=== PATIENT | female | born 1945 | race Caucasian/White ===

== ENCOUNTER → 2016-10-24 | Outpatient (CLI) | payer OTHER | LOC: BMCIMAGING 17:42 | PROVIDERS: ATTEND Internal Medicine | DX: M25.532 Pain in left wrist (principal); M25.432 Effusion, left wrist ==

== ENCOUNTER → 2016-11-05 | Outpatient (CLI) | payer OTHER | LOC: CIMAGING 13:56 | PROVIDERS: ATTEND Otolaryngology | DX: M79.89 Other specified soft tissue disorders (principal) | CPT/HCPCS: 70486-PO ==

== ENCOUNTER → 2017-03-17 | Outpatient (CLI) | payer OTHER | LOC: FIMAGING 10:14 | PROVIDERS: ATTEND Neurological Surgery | DX: M48.061 Spinal stenosis, lumbar region without neurogenic claudication (principal) ==

== ENCOUNTER 2017-07-19 10:41 | Day surgery (SDC) | payer OTHER ==
--- NOTE | 2017-07-19 11:05 | PDANEPAE ---
ANE Past Medical History - Cardiovascular History Hx Hypertension: Yes Hx Arrhythmias: Yes Hx Chest Pain: No Hx Coronary Artery / Peripheral Vascular Disease: No Hx CHF / Valvular Disease: No Hx Palpitations: No Cardiovascular History Comment: CARDIOVERSION X2 FOR A-FIB LAST 2015 - Pulmonary History Hx COPD: No Hx Asthma/Reactive Airway Disease: No Hx Recent Upper Respiratory Infection: No Hx Oxygen in Use at Home: Yes O2 in Use at Home (L/minute): 4.5 Hx Sleep Apnea: Yes Sleep Apnea Screening Result - Last Documented: Positive Pulmonary History Comment: INSTRUCTED TO BRING PORTABLE OXYGEN - Neurologic History Hx Cerebrovascular Accident: No Hx Seizures: No Hx Dementia: No - Endocrine History Hx Diabetes: Yes Hypothyroid: Yes Hyperthyroid: No Obesity: yes, mild Endocrine History Comment: CARL - Renal History Hx Renal Disorders: Yes Renal History Comment: UA INCONT - Liver History Hx Hepatic Disorders: No - Neurological & Psychiatric Hx Hx Neurological and Psychiatric Disorders: Yes Neurological / Psychiatric History Comment: CLOSED HEAD INJURY 09/2016 RESIDUAL ISSUES WITH SLEEP. ANXIETY AND DEPRESSION - Cancer History Hx Cancer: Yes Cancer History Comment: VULVA. ENDOMETRIAL - Congenital Disorder History Hx Congenital Disorders: No - GI History GERD: no Hx Gastrointestinal Disorders: Yes Gastrointestinal History Comment: PREV KIERA FUNDOPLICATION. PREV COLONOSCOPY WTIH POLYPS REMVL - Other Health History Other Health History: DDD. RESTLESS LEG SYNDROME. DRY EYES - Chronic Pain History Chronic Pain: Yes (LOWER BACK,LT LEG) - Surgical History Prior Surgeries: LESLIE TOTAL HIP. HYSTERECTOMY. RT RTC REPAIR. KIERA FUNDOPLICATION. TONSILLECTOMY ANE Review of Systems Review of Systems: - Exercise capacity METS (RN): 2 METS ANE Patient History - Allergies Allergies/Adverse Reactions: codeine [Codeine] Allergy (Verified 08/01/12 16:06) Vomiting - Home Medications Home Medications: SUMAtriptan [Imitrex Nasal [place]] 20 mg NASAL ONCE PRN 08/22/12 [Last Taken 07/21] Levothyroxine [Synthroid 112 mcg (*)] 112 mcg PO DAILY06 01/06/15 [Last Taken ] Vortioxetine Hydrobromide [Trintellix] 20 mg PO DAILY06 01/06/15 [Last Taken ] Diltiazem HCl [Diltiazem 24Hr Cd] 300 mg PO DAILY06 09/29/15 [Last Taken ] fentaNYL [Duragesic 50 MCG Patch (*)] 50 mcg TD Q48H 09/29/15 [Last Taken ] rOPINIRole HCL [Requip 1mg (*)] 1 mg PO HS 09/29/15 [Last Taken 07/17/17] Cyclobenzaprine 10 mg PO HS 01/12/16 [Last Taken 07/17/17] Vitamin D3 5,000 mg PO DAILY 01/12/16 [Last Taken 07/12/17] Mucinex BID 07/18/17 [Last Taken 07/18/17] Oxymorphone HCl PRN 07/18/17 [Last Taken 07/12/17] Temazepam HS 07/18/17 [Last Taken 07/18/17] - Anes Hx Anes Hx: no prior problems - Smoking Hx Smoking Status: Never smoked - Alcohol Use Alcohol Use: Rarely - Family Anes Hx Family Anes Hx: neg - N/A ANE Labs/Vital Signs - Vital Signs Height: 173.99 cm Weight: 99.79 kg ANE Physical Exam - Airway Neck exam: FROM Mallampati Score: Class 2 Mouth exam: normal dental/mouth exam - Pulmonary Pulmonary: no respiratory distress, no rales or rhonchi, clear to auscultation - Cardiovascular Cardiovascular: irregularly irregular - ASA Status ASA Status: III ANE Anesthesia Plan Anesthesia Plan: MAC Total IV Anesthesia: Yes
[2017-07-19 11:30] VITALS: PULSE 75
[2017-07-19] MEDS ORDERED: PROPOFOL/EMULSION 500 MG/50 ML BOTTLE IV ONE (11:52)
[2017-07-19] MEDS ORDERED: LIDOCAINE 2% 5 ML SDV ONE (11:52)
--- NOTE | 2017-07-19 11:53 | PDGENHP ---
History & Physical Chief Complaint: h/o colon polyps History of Present Illness: Due fro surviellance colon exam Pertinent Past, Social, Family History: fam h/o colon cancer in mother Relevant Physical Exam: cv rrr s1s2 n. chest cta. abd + bs soft Cardiorespiratory Assessment: asa iii
[2017-07-19] MEDS ORDERED: ACETAMINOPHEN 500 MG TAB PO PRN (11:58)
[2017-07-19] MEDS ORDERED: LR 500 ML IV PRN (11:58)
[2017-07-19] MEDS ORDERED: ONDANSETRON 4 MG/2 ML VIAL IVP PRN (11:58)
[2017-07-19] MEDS ORDERED: HYDROCODONE/APAP 5/325 TAB PO PRN (11:58)
[2017-07-19] MEDS ORDERED: PROMETHAZINE HCL 25 MG/ML INJ IVP PRN (11:58)
[2017-07-19] MEDS ORDERED: OXYCODONE/APAP 5/325 TAB PO PRN (11:58)
[2017-07-19] MEDS ORDERED: NALOXONE HCL 0.4 MG/ML INJ IVP PRN (11:58)
[2017-07-19] MEDS ORDERED: fentaNYL 100 MCG/2 ML INJ IVP PRN (11:58)
[2017-07-19] MEDS ORDERED: PHENYLEPHRINE HCL 100 MCG/ML SYR ONE (12:06)
--- NOTE | 2017-07-19 12:24 | GIREPORT ---
Formerly [facility] Surgical Services - Endoscopy Department Patient Name: Marianna Trinh Procedure Date: 07/19/2017 12:00 PM Patient Type: Outpatient Attending MD/ ER Physician: Arlene Abbasi MD Procedure: Colonoscopy Indications: High risk colon cancer surveillance: Personal history of colonic polyps , Family history of colon cancer in a first-degree relative Providers: Arlene Abbasi MD Medicines: Monitored Anesthesia Care Complications: No immediate complications. Description of Procedure: After obtaining informed consent, the scope was passed under direct vis ion. Throughout the procedure, the patient's blood pressure, pulse, and oxyg en saturations were monitored continuously. The Colonoscope with irrigatio n channel was introduced through the anus and advanced to the cecum, identified by appendiceal orifice and ileocecal valve. The colonoscopy was performed without difficulty. The patient tolerated the procedure well. The quality of the bowel preparation was good. The ileocecal valve, appendi ceal orifice, and rectum were photographed. Findings: The perianal and digital rectal examinations were normal. A few diverticula were found in the sigmoid colon. The mucosa vascular pattern in the rectum was locally increased. Estimated Blood Loss: Estimated blood loss: none. Post Op Diagnosis: - Diverticulosis in the sigmoid colon. - Increased mucosa vascular pattern in the rectum possibel AVMs vs prep effect. - No specimens collected. Recommendation: - Patient has a contact number available for emergencies. The signs and symptoms of potential delayed complications were discussed with the pat ient. Return to normal activities tomorrow. Written discharge instructions we re provided to the patient. - Resume previous diet. - Continue present medications. - Resume Eliquis (apixaban) at prior dose today. Refer to managing phys ician for further adjustment of therapy. - Repeat colonoscopy in 5 years for surveillance. - Discharge patient to home. - Thank you for allowing me to participate in the care of your patient. Arlene Abbasi MD Arlene Abbasi MD 07/19/2017 12:23:53 PM This report has been signed electronicallyArlene Abbasi MD Number of Addenda: 0 Note Initiated On: 07/19/2017 12:00 PM Total Procedure Duration Time 0 hours 15 minutes 34 seconds [email or web address]
--- NOTE | 2017-07-19 12:38 | POSTANESTH ---
Post Anesthetic Evaluation Cardiovascular Status: Normal, Stable Respiratory Status: Normal, Stable Level of Consciousness/Mental Status: Can Participate in Eval Pain Control: Adequate, Prn Tx Ordered Nausea/Vomiting Control: Adequate, Prn Tx Ordered Complications Possibly Related to Anesthesia: None Noted
[2017-07-19 13:34] VITALS: TEMP 97.7
[2017-07-19 13:41] VITALS: BP 134/66; RESP 16; O2SAT 90
== END 2017-07-19 13:38 | disposition home or self-care (01) ==
LOC: FSGY 10:41
PROVIDERS: ATTEND Internal Medicine Gastroenterology
PROC: 0DJD8ZZ Inspection of Lower Intestinal Tract, Via Natural or Artificial Opening Endoscopic (ICD-10-PCS; principal; 2017-07-19 12:00)
DX: Z12.11 Encounter for screening for malignant neoplasm of colon (principal); Z86.010 Personal history of colon polyps; Z80.0 Family history of malignant neoplasm of digestive organs; K57.30 Diverticulosis of large intestine without perforation or abscess without bleeding; I48.91 Unspecified atrial fibrillation; Z87.820 Personal history of traumatic brain injury; Z96.643 Presence of artificial hip joint, bilateral
CPT/HCPCS: J2370; J2704

== ENCOUNTER 2017-08-14 10:48 | Inpatient (IN) | payer OTHER ==
[2017-08-14] MEDS ORDERED: HYDROmorphONE/DILAUDID 2 MG/ML INJ IVP ONE (12:40)
--- NOTE | 2017-08-14 12:40 | EDPHY ---
H & P Stated Complaint: Tripped and fell last night; has L rib/R wrist pain. No other injuries - Personal History Current Tetanus Diphtheria and Acellular Pertussis (TDAP): Yes Tetanus Vaccine Date: WITHIN 10 YRS - Medical/Surgical History Hx Asthma: No Hx Chronic Respiratory Disease: No Hx Diabetes: Yes Hx Cardiac Disease: Yes Hx Renal Disease: No Hx Cirrhosis: No Hx Alcoholism: No Hx HIV/AIDS: No Hx Splenectomy or Spleen Trauma: No Other PMH: home O2 at night; endometrial CA; hysterectomy; Bilateral hip replacements, sleep apnea, chronic back pain, DDD, thyroid disease, Romeo, GERD, Right rotator cuff repair, Afib. Urosepsis, recent radiation. chronic pain - Social History Smoking Status: Never smoked Time Seen by Provider: 08/14/17 11:00 HPI/ROS: Chief complaint: Fall with injuries History of present illness: This is a 72-year-old female, with multiple medical problems, currently on Eliquis, who presents to the emergency department for evaluation of fall with associated injuries. She fell last night. She injured the left side of her chest in her right wrist. Since then she has had pain. She does live independently and is made it very difficult to care for herself. She is relied on her home caregivers for extra support. She denies associated signs or symptoms including no report trauma to other parts of the body including no trauma to or pain in the head, neck, back, abdomen or other extremities. No report of paresthesias, weakness or paralysis or bowel or bladder dysfunction. No report of open wounds. Review of systems: A 10 point review of systems was obtained and other than described above was negative (Matt Chambers) - Physical Exam Exam: General Appearance: Alert, uncomfortable but nontoxic appearing Eyes: PERRLA ENT: No hemotympanum, no cifuentes sign, no raccoon eyes Respiratory: Lungs clear to auscultation bilaterally Cardiac: Regular rate and rhythm. Gastrointestinal: Bowel sounds normal. Abdomen is soft, nondistended, nontender. Neurological: Alert and oriented x4. Cranial nerves 2-12 grossly intact. Strength and sensation intact and symmetrical. Skin: No lesions with acute trauma noted. Musculoskeletal: The head is nontender. The spine is nontender, there is no crepitus, bony deformity or step-off. Tenderness to the left superior chest wall without subcutaneous air. Pelvis stable to rocking motion. Tenderness of the right wrist and hurts to move it. The rest of the right upper extremity and other extremities are unremarkable. (Matt Chambers) Constitutional: Initial Vital Signs Temperature (C) 36.4 C 08/14/17 10:48 Heart Rate 102 H 08/14/17 10:48 Respiratory Rate 16 08/14/17 10:48 Blood Pressure 164/103 H 08/14/17 10:48 O2 Sat (%) 91 L 08/14/17 10:48 O2 Delivery Mode Room Air O2 (L/minute) 2 Allergies/Adverse Reactions: codeine [Codeine] Allergy (Mild, Verified 08/14/17 10:59) Vomiting Home Medications: Medication Instructions Recorded Apixaban [Eliquis] 5 mg PO BID #60 tab 01/07/15 Oxymorphone HCl 5 mg PO BID PRN 07/18/17 Calcium Carbonate [Oyster Shell 500 mg PO DAILY 08/14/17 Calcium 500 mg (*)] Cholecalciferol Vit D3 [Vitamin D3 1,000 units PO DAILY 08/14/17 (*)] Cyclobenzaprine [Flexeril 10 MG 10 mg PO HS PRN 08/14/17 (*)] Diltiazem HCl [Cartia XT 240mg] 240 mg PO DAILY@1200 08/14/17 Levothyroxine [Synthroid 125 mcg 125 mcg PO DAILY06 08/14/17 (*)] Modafinil [Provigil 100 mg (*)] 100 mg PO DAILY PRN 08/14/17 Temazepam [Restoril 15 MG (*)] 15 mg PO HSPRN PRN 08/14/17 Travoprost Z 0.004% [Travatan Z 1 drops EACHEYE BID 08/14/17 0.004% (*)] Vortioxetine Hydrobromide 20 mg PO DAILY@1200 08/14/17 [Trintellix] cycloSPORINE 0.05% [Restasis Opht 1 drop EACHEYE BID 08/14/17 Drops(*)] fentaNYL [Duragesic 75 MCG Patch 75 mcg TD Q48H 08/14/17 (*)] rOPINIRole HCL [Requip 2mg (*)] 2 mg PO HS 08/14/17 Apixaban [Eliquis] 5 mg PO BID tab 08/17/17 Diltiazem Xr [Dilacor Xr] 240 mg PO DAILY cap 08/17/17 Hydrocodone/APAP 5/325 [[place] 1 - 2 tab PO Q6HRS PRN #30 tab 08/17/17 5/325 (*)] Ibuprofen [Motrin (*)] 600 mg PO Q8HRS 10 Days #30 tab 08/17/17 Medical Decision Making - Diagnostics Imaging: I viewed and interpreted images myself Procedures: Procedure: Splint placement. A sugar-tong splint was applied. After application of the splint I returned and re-examined the patient. The splint was adequately immobilizing the joint and distal to the splint the patient's circulation and sensation was intact. ( Matt Chambers) ED Course/Re-evaluation: Patient is discussed with my secondary supervising physician Dr. Yee Best. Patient presents to the emergency department after sustaining a fall last night injuring the left side of her chest and her right wrist. By history and physical exam no evidence of trauma to other parts of the body. Imaging studies revealed 3 left-sided rib fractures and a right wrist fracture. Ultimately I do not believe patient is safe for discharge home. Multiple injuries are making it difficult for her to perform ADLs. Further she is on Eliquis. Further pain management has been difficult as she is on chronic pain medications. She is oxygen dependent at night and adding more pain management could worsen this. She will ultimately be admitted to Trauma Services, Dr. Donte Gordon. I have consulted with Orthopedics, physician high school assistant principal Emma Contreras , the orthopedic team will consult on this patient for her wrist fracture. The plan has been discussed with the patient who voiced understanding and agreement with it. (Matt Chambers) Differential Diagnosis: Included but not limited to multi trauma including soft tissue injury, bony fracture (Matt Chambers) Other Provider: I evaluated and participated in the management of the patient. I also evaluated the patient independently. My co-signature indicates that I have reviewed this chart and I agree with the findings and plan of care as documented. My personal H&P findings include: 72-year-old female who lives independently, currently on Eliquis, had a fall at home. Patient is complaining of left-sided chest pain as well as pain in her right wrist. No reports of head trauma or loss of consciousness. Vital signs are stable. The breath sounds are equal bilaterally. Tenderness to palpation along the chest wall laterally the left. Tenderness and deformity of the right wrist. Evaluation demonstrates rib fractures as well as a right wrist fracture. Patient will be admitted to the hospital for further management of her traumatic complaints as well as pain management as she currently lives independently. (Yee Best) - Data Points Laboratory Results: Laboratory Results 08/15/17 09:20 08/16/17 04:17 Medications Given: Discontinued Medications Acetaminophen (Tylenol) 1,000 mg PO EDNOW ONE Stop: 08/14/17 12:42 Last Admin: 08/14/17 13:30 Dose: 1,000 mg Hydrocodone Bitart/Acetaminophen ([place] 5/325) 1 - 2 tab PO Q6HRS PRN PRN Reason: Pain, Moderate Able to Take PO Stop: 08/24/17 13:11 Last Admin: 08/17/17 07:50 Dose: 1 tab Apixaban (Eliquis) 5 mg PO BID [facility] Stop: 02/12/18 08:59 Last Admin: 08/17/17 07:46 Dose: 5 mg Cyclobenzaprine HCl (Flexeril) 10 mg PO HS PRN PRN Reason: Spasms Stop: 02/10/18 16:27 Last Admin: 08/16/17 22:01 Dose: 10 mg Cyclosporine (Restasis) 1 drop EACHEYE BID MARIO Stop: 02/10/18 20:59 Last Admin: 08/17/17 11:32 Dose: 1 drop Diazepam (Valium) 5 - 10 mg PO Q6HRS PRN PRN Reason: Anxiety Stop: 02/10/18 13:11 Last Admin: 08/15/17 23:05 Dose: 5 mg Diltiazem HCl (Dilacor Xr) 240 mg PO DAILY [facility] Stop: 02/10/18 16:29 Last Admin: 08/17/17 07:46 Dose: 240 mg Docusate Sodium (Colace) 100 mg PO BID [facility] Stop: 02/11/18 10:44 Last Admin: 08/17/17 07:47 Dose: 100 mg Fentanyl (Duragesic) 75 mcg TD Q48H MARIO Stop: 08/24/17 16:29 Last Admin: 08/14/17 16:48 Dose: Not Given Fentanyl (Duragesic) 75 mcg TD Q48H [facility] Stop: 08/26/17 09:44 Last Admin: 08/16/17 10:07 Dose: 75 mcg Hydromorphone HCl (Dilaudid) 0.5 mg IVP EDNOW ONE Stop: 08/14/17 12:41 Last Admin: 08/14/17 13:30 Dose: 0.5 mg Dextrose/Sodium Chloride (D5w 1/2 Ns) 1,000 mls @ 125 mls/hr IV CONT MARIO Stop: 02/10/18 13:14 Last Admin: 08/15/17 10:01 Dose: 1,000 mls Ibuprofen (Motrin) 600 mg PO Q8HRS MARIO Stop: 02/10/18 13:59 Last Admin: 08/17/17 05:28 Dose: 600 mg Levothyroxine Sodium (Synthroid) 125 mcg PO DAILY06 MARIO Stop: 02/11/18 05:59 Last Admin: 08/17/17 05:29 Dose: 125 mcg Miscellaneous Information (Patch Removal) 1 ea TD DAILY21 MARIO Stop: 02/10/18 20:59 Last Admin: 08/15/17 03:00 Dose: 1 ea Miscellaneous Medication (Icy Hot Lidocaine/Menthol 4%/1% Patch) 1 patch TD EDNOW ONE Stop: 08/14/17 12:42 Last Admin: 08/14/17 13:31 Dose: 1 patch Oxycodone HCl (Oxycodone Ir) 5 mg PO Q4 PRN PRN Reason: Pain, Severe Stop: 08/25/17 10:39 Last Admin: 08/17/17 12:50 Dose: 5 mg Potassium Chloride (Klor-Con) 10 - 40 meq PO ONCE ONE PRN Reason: Protocol Stop: 08/15/17 13:06 Last Admin: 08/15/17 13:23 Dose: 30 meq Ropinirole HCl (Requip) 2 mg PO HS MARIO Stop: 02/10/18 20:59 Last Admin: 08/16/17 21:49 Dose: 2 mg Senna/Docusate Sodium (Senokot-S) 1 - 2 tab PO BID MARIO PRN Reason: Protocol Stop: 02/12/18 12:29 Last Admin: 08/17/17 07:46 Dose: 2 tab Temazepam (Restoril) 15 mg PO HS PRN PRN Reason: Sleep/Insomnia Stop: 02/10/18 16:27 Last Admin: 08/17/17 00:46 Dose: 15 mg Travoprost (Travatan Z 0.004%) 1 drops EACHEYE BID MARIO Stop: 02/10/18 20:59 Last Admin: 08/17/17 11:40 Dose: Not Given Departure - Departure Disposition: [facility] Inpatient Acute Clinical Impression: Ribs, multiple fractures Qualifiers: Encounter type: initial encounter Fracture type: closed Laterality: left Qualified Code(s): S22.42XA - Multiple fractures of ribs, left side, initial encounter for closed fracture Wrist fracture, right Qualifiers: Encounter type: initial encounter Fracture type: closed Qualified Code(s): S62.101A - Fracture of unspecified carpal bone, right wrist, initial encounter for closed fracture Condition: Fair
[2017-08-14] MEDS ORDERED: LIDOCAINE 4%/MENTHOL 1% PATCH TD ONE (12:41)
[2017-08-14] MEDS ORDERED: ACETAMINOPHEN 500 MG TAB PO ONE (12:41)
[2017-08-14 13:01] LABS: PLATELET COUNT 298 10^3/uL (150-400)
[2017-08-14] MEDS ORDERED: ONDANSETRON DISINTEGRATING 4 MG TAB PO PRN (13:12)
[2017-08-14] MEDS ORDERED: ONDANSETRON 4 MG/2 ML VIAL IVP PRN (13:12)
[2017-08-14] MEDS ORDERED: DIAZEPAM 5 MG TAB PO PRN (13:12)
--- NOTE | 2017-08-14 13:17 | PDGENHP ---
History and Physical - Chief Complaint chest pain - History of Present Illness Marianna is a 72 y/o female who lost her footing a fell to the ground around midnight last night. She denies feeling light headed and denies LOC, head injury , prior syncope. She called her sister, who lives nearby, and her sister helped her to bed. This morning she had worsening left sided chest pain and swelling in her right wrist and she decided it was time to come in. She is complaining of left chest pain and right wrist pain. She has chronic low back pain for which she uses a fentanyl patch + oxymorphone. She denies headache, visual disturbances, nausea, vomiting, change in her bowel movements History Information - Allergies/Home Medication List Allergies/Adverse Reactions: codeine [Codeine] Allergy (Mild, Verified 08/14/17 10:59) Vomiting Home Medications: Oxymorphone HCl 5 mg PO BID PRN 07/18/17 [Last Taken 08/14/17 03:00] Calcium Carbonate [Oyster Shell Calcium 500 mg (*)] 500 mg PO DAILY 08/14/17 [ Last Taken Unknown] Cholecalciferol Vit D3 [Vitamin D3 (*)] 1,000 units PO DAILY 08/14/17 [Last Taken Unknown] Cyclobenzaprine [Flexeril 10 MG (*)] 10 mg PO HS PRN 08/14/17 [Last Taken ] Diltiazem HCl [Cartia XT 240mg] 240 mg PO DAILY@1200 08/14/17 [Last Taken ] Levothyroxine [Synthroid 125 mcg (*)] 125 mcg PO DAILY06 08/14/17 [Last Taken ] Modafinil [Provigil 100 mg (*)] 100 mg PO DAILY PRN 08/14/17 [Last Taken Unknown ] Temazepam [Restoril 15 MG (*)] 15 mg PO HSPRN PRN 08/14/17 [Last Taken 08/13/17] Travoprost Z 0.004% [Travatan Z 0.004% (*)] 1 drops EACHEYE BID 08/14/17 [Last Taken Unknown] Vortioxetine Hydrobromide [Brintellix] 20 mg PO DAILY@1200 08/14/17 [Last Taken 08/13/17] cycloSPORINE 0.05% [Restasis Opht Drops(*)] 1 drop EACHEYE BID 08/14/17 [Last Taken Unknown] fentaNYL [Duragesic 75 MCG Patch (*)] 75 mcg TD Q48H 08/14/17 [Last Taken ] rOPINIRole HCL [Requip 2mg (*)] 2 mg PO HS 08/14/17 [Last Taken 08/13/17] I have personally reviewed and updated: family history, medical history, social history (lives alone in [facility]), surgical history - Past Medical History atrial fibrillation (sees Dr. Prado), GERD, recent fracture - Surgical History Additional surgical history: bilateral SAM/lap Pinky - Social History Smoking Status: Never smoked Alcohol Use: None Drug Use: None Review of Systems Review of Systems: Constitutional: Reports: recent injury EENMT: Reports: no symptoms Cardiac: Reports: irregular heart rate Respiratory: Reports: shortness of breath Gastrointestinal: Reports: no symptoms Genitourinary: Reports: no symptoms Muscolosketal: Reports: joint pain (right wrist) Skin: Reports: no symptoms Neurological: Reports: no symptoms Hematologic/Lymphatic: Reports: no symptoms Physical Exam Physical Exam: Temp Pulse Resp BP Pulse Ox 36.4 C 96 18 142/101 H 93 08/14/17 10:48 08/14/17 12:00 08/14/17 12:00 08/14/17 12:00 08/14/17 12:00 Eyes: PERRL, anicteric sclera, EOMI Ears, Nose, Mouth, Throat: other (neck supple/non-tender) Cardiovascular: irregularly irregular, tachycardia Peripheral Pulses: 2+: dorsalis-pedis (R), dorsalis-pedis (L) Respiratory: clear to auscultation, reduced air movement Gastrointestinal: normoactive bowel sounds, soft, non-tender abdomen Skin: warm, normal color Musculoskeletal: other (right forearm sugar-tong splint/distal NV intact) Neurologic: AAOx3, sensation intact bilaterally Psychiatric: interacting appropriately, anxious Lab Data & Imaging Review 08/14/17 12:50 08/14/17 12:50 WBC 17.25 10^3/uL (3.80-9.50) H 08/14/17 12:50 RBC 5.51 10^6/uL (4.18-5.33) H 08/14/17 12:50 Hgb 17.4 g/dL (12.6-16.3) H 08/14/17 12:50 Hct 50.9 % (38.0-47.0) H 08/14/17 12:50 MCV 92.4 fL (81.5-99.8) 08/14/17 12:50 MCH 31.6 pg (27.9-34.1) 08/14/17 12:50 MCHC 34.2 g/dL (32.4-36.7) 08/14/17 12:50 RDW 13.9 % (11.5-15.2) 08/14/17 12:50 Plt Count 298 10^3/uL (150-400) 08/14/17 12:50 MPV 8.5 fL (8.7-11.7) L 08/14/17 12:50 Neut % (Auto) 88.2 % (39.3-74.2) H 08/14/17 12:50 Lymph % (Auto) 4.4 % (15.0-45.0) L 08/14/17 12:50 [place] % (Auto) 6.3 % (4.5-13.0) 08/14/17 12:50 Eos % (Auto) 0.3 % (0.6-7.6) L 08/14/17 12:50 Baso % (Auto) 0.5 % (0.3-1.7) 08/14/17 12:50 Nucleat RBC Rel Count 0.0 % (0.0-0.2) 08/14/17 12:50 Absolute Neuts (auto) 15.22 10^3/uL (1.70-6.50) H 08/14/17 12:50 Absolute Lymphs (auto) 0.76 10^3/uL (1.00-3.00) L 08/14/17 12:50 Absolute Monos (auto) 1.08 10^3/uL (0.30-0.80) H 08/14/17 12:50 Absolute Eos (auto) 0.05 10^3/uL (0.03-0.40) 08/14/17 12:50 Absolute Basos (auto) 0.08 10^3/uL (0.02-0.10) 08/14/17 12:50 Absolute Nucleated RBC 0.00 10^3/uL (0-0.01) 08/14/17 12:50 Immature Gran % 0.3 % (0.0-1.1) 08/14/17 12:50 Immature Gran # 0.06 10^3/uL (0.00-0.10) 08/14/17 12:50 PT REJ 08/14/17 12:50 Sodium 142 mEq/L (135-145) 08/14/17 12:50 Potassium 4.7 mEq/L (3.5-5.2) 08/14/17 12:50 Chloride 102 mEq/L (97-110) 08/14/17 12:50 Carbon Dioxide 25 mEq/l (22-31) 08/14/17 12:50 Anion Gap 15 mEq/L (8-16) 08/14/17 12:50 BUN 13 mg/dL (7-23) 08/14/17 12:50 Creatinine 0.6 mg/dL (0.6-1.0) 08/14/17 12:50 Estimated GFR > 60 08/14/17 12:50 Glucose 100 mg/dL (70-100) 08/14/17 12:50 Calcium 9.3 mg/dL (8.5-10.4) 08/14/17 12:50 Visualized and Interpreted Chest x-ray results: Yes Chest X-Ray results: other (left lateral minimally displaced fractures ribs 4-6/ no effusion/normal mediastinum) Visualized and Interpreted imaging results: Yes Interpretation: comminuted right distal radius fracture, intra-articular extension. no carpal bone fracture Assessment & Plan Assessment: s/p fall at home, 14 hours prior to presentation left 4-6th rib fractures, non-displaced right distal radius fracture/intra-articular extensio A-fib tachycardia obesity HTN chronic pain on chronic opiate therapy Plan: Plan: Admit ICU/Trauma Service for observation Hold Eliquis for now Ortho consult: Dr. Quijano's aware/splint right wrist for now resume Diltiazem Hospitalist consult: Dr. Raymundo has agreed to see her Tertiary survey in AM
[2017-08-14 14:25] LABS: INR 1.14 (0.83-1.16); PROTIME(PATIENT) 14.8 SEC (12.0-15.0)
[2017-08-14] MEDS: IBUPROFEN 600 MG TAB PO SCH ×2 (16:07→21:18)
[2017-08-14] MEDS ORDERED: MODAFINIL 100 MG TAB PO PRN (16:28)
[2017-08-14] MEDS ORDERED: fentaNYL 75 MCG PATCH TD SCH (16:30)
[2017-08-14] MEDS: DILTIAZEM XR 240 MG CAP PO SCH (16:52)
--- NOTE | 2017-08-14 17:49 | SOAPPROG ---
SOAP Progress Note Assessment/Plan: Assessment: HPI: 72 y/o female s/p a fall onto her outstretched RUE and left chest earlier today (08/14/17). She presented to the [facility] ED and was found to have a right distal radius fracture and several left-sided rib fractures. PE: Gen: NAD AVSS RUE: Sugar tong splint CDI +EDC, EPL, FPL, FDS, FDP, FDP-I, DI, PI +M/R/U SILT < 2 second capillary refill Right wrist radiographs: right distal radius fracture (complete, minimally displaced) Assessment and Plan: 72 year old female s/p a right distal radius fracture (complete, minimally displaced) and several left-sided rib fracture after a fall earlier today () -Continue in current sugar tong splint -Strict NWB on LUE -FU as an outpatient next week for repeat left wrist radiographs remaining in current splint -Encourage finger and thumb ROM -Full consult to follow 08/14/17 17:45 08/14/17 17:49 Objective: Vital Signs Temp Pulse Resp BP Pulse Ox 36.6 C 110 H 17 145/71 H 95 08/14/17 16:00 08/14/17 16:00 08/14/17 16:00 08/14/17 16:00 08/14/17 16:00 Laboratory Results 08/14/17 12:50 08/14/17 12:50 08/13/17 08/14/17 08/15/17 05:59 05:59 05:59 Intake Total 20 Balance 20 PT 14.8 SEC (12.0-15.0) 08/14/17 14:09 INR 1.14 (0.83-1.16) 08/14/17 14:09 ICD10 Worksheet Patient Problems: Problems Problem Status Onset Ribs, multiple fractures Acute Wrist fracture, right Acute Afib Acute Altered mental status Acute Diarrhea Acute Failure to thrive Acute Fever Acute Severe sepsis Acute UTI (urinary tract infection) Acute Osteoarthritis of hip Chronic
[2017-08-14 18:38] LABS: PLATELET COUNT 291 10^3/uL (150-400)
--- NOTE | 2017-08-14 18:47 | GCON ---
[f rep st] CONSULTATION DATE OF CONSULTATION: 08/14/2017 REASON FOR CONSULTATION: I was asked by Dr. Gordon to see Ms. Trinh in regard to her medical problem s including AFib with RVR. HISTORY OF PRESENT ILLNESS: This 72-year-old female who suffered a fall about noon today. She was f eeding her cat when she tripped in the kitchen, fell backwards, hit her back against the cabinets, br cat her fall with her right wrist. She had immediate pain in the left ribs. She has some pain there , but is denying any other chest pain. She does not have any lightheadedness, or shortness of breath either. She has a history of atrial fibrillation. She did not take her diltiazem on time today. S he has chronic pain. She is on a fentanyl patch, as well as oxymorphone. PAST MEDICAL/SURGICAL HISTORY: 1. Endometrial cancer, status post hysterectomy with recurrences. Recently received radiation. 2. Atrial fibrillation with failed cardioversions in the past. She is anticoagulated. 3. Chronic pain on continuous narcotics due to back pain. 4. Hypothyroid on Synthroid. 5. GERD. 6. Bilateral SAM. 7. Rotator cuff surgery. 8. Pinky fundoplication. 9. Tracheomalacia. 10. Chronic respiratory failure. MEDICATIONS: Please see medication reconciliation. ALLERGIES: Codeine. FAMILY HISTORY: Reviewed and noncontributory. SOCIAL HISTORY: She does not drink or smoke. She has help during the day. REVIEW OF SYSTEMS: 10-point review of systems is conducted and is negative except per HPI. PHYSICAL EXAM: VITAL SIGNS: Blood pressure 145/71, heart rate 110, respiration rate 17, satting 95% on 2 L. Temperature is 36.6. GENERAL: Ms. Trinh is a pleasant obese female who is resting in be d comfortably, in no acute distress. HEENT: Shows to be normocephalic, atraumatic. CARDIOVASCULAR: Shows her to be tachycardic. She is irregularly irregular. PULMONARY: Shows lungs clear to auscu ltation bilaterally. ABDOMEN: Soft, nontender, nondistended. SKIN: Shows no rash. : Shows no [place]. NEUROLOGIC: Shows her to be alert and oriented x3. She is moving all extremities. PSYCHIAT JOEL: Shows normal mood and affect. EXTREMITIES: Shows her right extremity to be in an Biju wrap and splint. DATA: Labs show white count of 17.5, which is 88% neutrophils. INR is 1.1. Basic metabolic panel i s normal. DATA: 1. I discussed this Dr. Gordon. I will consult. 2. Rib x-ray shows mildly displaced fractures of the anterolateral aspects of left 4th, 5th and 6th ribs. There is no hemorrhage, pleural effusion. 3. Wrist x-ray shows comminuted, moderately displaced right radial metaphyseal fracture with intraar ticular extension. IMPRESSION AND PLAN: 1. Atrial fibrillation: Agree with holding Eliquis given rib fractures and possible need for wrist surgery. Her CHADS2 Vasc score is approximately 3. This places her somewhere between a 3% and 4% an nual risk of stroke. Okay to hold Eliquis until postoperative or no concern for pleural hemorrhage. Agree with giving her diltiazem. She is somewhat rapid because she missed her noon dose. I have as ked Nursing to call me if her heart rate does not improve. We can consider some intravenous diltiaze m as well. 2. Rib fractures: Per Trauma Surgery. 3. Wrist fracture: Orthopedics has been consulted by Dr. Gordon. 4. Chronic pain on continuous narcotics: She currently appears comfortable with her pain management . She is getting Tylenol. Fentanyl patch is on. She has [place] ordered. She is also getting intrav enous morphine as needed. 5. Recent closed head injury: This has made it very difficult for her to sleep; thus, she tells me that she has been placed on Restoril. She is also taking modafinil to help her wake up in the mornin g. 6. Restless legs: Requip. 7. Hypothyroid: Synthroid. Thank you for involving Hospital Medicine in the care of Ms. Trinh. We will continue to follow wade sol. /[id number]/VAN
[2017-08-14] MEDS ORDERED: PATCH REMOVAL 1 EA PATCH TD SCH (21:00)
[2017-08-14] MEDS: D5W 1/2 NS 1,000 ML IV SCH (21:11)
[2017-08-14] MEDS: TRAVOPROST Z 0.004% 2.5 ML OPHT.BTL EACHEYE SCH (21:14)
[2017-08-14] MEDS: HYDROCODONE/APAP 5/325 TAB PO PRN ×2 (21:17→22:30)
[2017-08-14] MEDS: cycloSPORINE 0.05% 30 DROPERETTE/BOX EACHEYE SCH (21:17)
[2017-08-14] MEDS: CYCLOBENZAPRINE 10 MG TAB PO PRN (21:18)
[2017-08-14] MEDS: TEMAZEPAM 15 MG CAP PO PRN (22:24)
[2017-08-15 01:10] LABS: PLATELET COUNT 234 10^3/uL (150-400)
[2017-08-15] MEDS: HYDROCODONE/APAP 5/325 TAB PO PRN ×3 (06:26→20:15)
[2017-08-15] MEDS: IBUPROFEN 600 MG TAB PO SCH ×3 (06:26→20:47)
[2017-08-15] MEDS: LEVOTHYROXINE 125 MCG TAB PO SCH (06:27)
--- NOTE | 2017-08-15 06:34 | GCON ---
[f rep st] CONSULTATION Patient Name: HANS LINDSEY N-Number: [id number] Date of : 1945 Patient Status: Inpatient Attending Doctor: Donte Gordon MD Consulting Doctor: Josesito Quijano MD Date of service: 08/14/17 CPT codes: CPT code 99827 ER visit requiring admission or initial inpatient visit, level three CHIEF COMPLAINT: Left chest pain, right wrist pain HISTORY OF PRESENT ILLNESS: This is a very pleasant 72 year old female with a significant history for mechanical fall last night (08/13/17) after losing her footing. She presented to the [facility] ED today (08/14/17) and was found to have multiple left-sided rib fractures and a right distal radius fracture. PROBLEM LIST: Multiple left-sided rib fractures, right distal radius fracture PAST MEDICAL HISTORY: A-fib, GERD SURGERIES: Bilateral SAM, Lap Pinky SOCIAL HISTORY: Non-contributory FAMILY HISTORY: Non-contributory CURRENT MEDICATIONS: Oxymorphone HCl 5 mg PO BID PRN, Calcium Carbonate [Oyster Shell Calcium 500 mg (*)] 500 mg PO DAILY, Vit D3 [Vitamin D3 (*)] 1,000 units PO DAILY, Cyclobenzaprine [Flexeril 10 MG (*)] 10 mg PO HS PRN, Diltiazem HCl [Cartia XT 240mg] 240 mg PO DAILY, Levothyroxine [Synthroid 125 mcg (*)] 125 mcg PO DAILY06 , Modafinil [Provigil 100 mg (*)] 100 mg PO DAILY, Temazepam [Restoril 15 MG (*) ] 15 mg PO HSPRN PRN , Travoprost Z 0.004% [Travatan Z 0.004% (*)] 1 drops EACHEYE BID, Vortioxetine Hydrobromide [Brintellix] 20 mg PO DAILY, cycloSPORINE 0.05% [Restasis Opht Drops(*)] 1 drop EACHEYE BID, fentaNYL [ Duragesic 75 MCG Patch (*)] 75 mcg TD Q48H, rOPINIRole HCL [Requip 2mg (*)] ALLERGIES: REVIEW OF SYSTEMS Constitutional: No unexpected weight loss, weight gain, fevers, chills, or fatigue. Eyes: No blurred or double vision, no eye pain, redness or swelling. ENT: No headaches, difficulty swallowing, nose bleeds, tinnitus, or earaches. Cardiovascular: No chest pain, palpitations, fainting or murmurs. Respiratory: No shortness of breath, wheezing, cough, of difficulty breathing. GI: No reflux, no nausea or vomiting, no constipation, diarrhea, or bloody stools. Genitourinary: No urinary frequency or urgency, no pain with urination. Skin: No skin changes, rashes, itching, or redness. Neurologic: No unsteadiness of gait, no dizziness, tremors, or seizures. Psychiatric: No nervousness, anxiety, depression, or hallucinations. Hematologic: No increased bleeding or easy bruising. Endocrine: No excessive thirst or urination and no heat or cold intolerances. Allergic: No reactions to food or environment. Musculoskeletal: See history of present illness. PHYSICAL EXAM General: No apparent distress. Orientation: Alert and oriented times three Mood and affect: Calm, appropriate. Gait and station: Normal gait and station. Skin: Warm, dry. Lymph: Non tender neck, axillary and inguinal nodes. Chest: Equal expansion, no pain with deep breaths, speaks in coherent sentences. Cardiovascular: Regular pulse. Abdomen: Soft, non-tender, no masses, no palpable hernias. Bilateral wrist examination Inspection/palpation: Right: Sugar tong splint CDI Left: Normal resting posture. Wrist ROM Wrist Flexion: OKSANA / 90 / 90 Extension: OKSANA / 90 / 90 Forearm Supination: OKSANA / 0-80 / 0-80 Pronation: OKSANA / 0-80 / 0-80 Wrist/hand strength (R / L / Normal) EDC: EPL (PIN): FPL (AIN): FDS (C8): FDP (C8): / FDP-I (C8 / AIN): DI (C8-T1): / PI (C8-T1): / / Wrist/hand sensory Median: + / + / + Radial: + / + / + Ulnar: + / + / + Vascular exam (R / L / Normal) Radial pulse: 2+ / 2+ / 2+ Ulnar pulse: 2+ / 2+ / 2+ Medical decision making Data Imaging study: right wrist radiographs, three views Action: interpreted Interpretation / pertinent findings: mildly displaced right distal radius fracture with intra-articular extension Imaging study: chest radiograph Action: interpreted Interpretation / pertinent findings: minimally displaced left-sided rib fractures 4-6 Diagnoses New diagnosis: right distal radius fracture Work-up planned: yes: see assessment and plan New diagnosis: left-sided 4th-6th rib fractures Work-up planned: yes: see assessment and plan Assessment and plan This is a very pleasant 72 year old female with a right distal radius fracture ( mildly displaced) as well as left-sided 4th-6th rib fractures after a fall on -Strict NWB on RUE -Continue in current sugar tong splint full-time -Encourage finger and thumb ROM -Follow-up as an outpatient next week for splint removal, repeat right wrist radiographs, and probable conversion into a short-arm cast Time I have spent 80 minutes of [id number] time with the patient during this visit. Over fifty percent of this time was spent counseling the patient on the risks, benefits, alternatives, and complications of both non-operative and operative forms of treatment as outlined above. /[id number]/MODL MTDD
[2017-08-15] MEDS: cycloSPORINE 0.05% 30 DROPERETTE/BOX EACHEYE SCH ×2 (09:08→20:48)
[2017-08-15] MEDS: DILTIAZEM XR 240 MG CAP PO SCH (09:08)
[2017-08-15 09:35] LABS: PLATELET COUNT 244 10^3/uL (150-400)
[2017-08-15] MEDS: TRAVOPROST Z 0.004% 2.5 ML OPHT.BTL EACHEYE SCH ×2 (10:00→20:20)
[2017-08-15] MEDS: CYCLOBENZAPRINE 10 MG TAB PO PRN ×2 (10:01→20:15)
[2017-08-15] MEDS: D5W 1/2 NS 1,000 ML IV SCH (10:01)
[2017-08-15] MEDS ORDERED: MAGNESIUM HYDROXIDE 30 ML UDCUP PO PRN (10:42)
--- NOTE | 2017-08-15 10:46 | SOAPPROG ---
SOAP Progress Note Assessment/Plan: Assessment: Plan: Subjective: left rib pain despite curretn narcotic- fentynl patch, po norco, etc. will give oxyir as backup. transfer to floor. lungs clear, cxr clear other than slight l atelectasis. r wrist fx not needing surgery. will restat eliquis tomorrow Objective: Vital Signs Temp Pulse Resp BP Pulse Ox 37.0 C 85 20 105/65 90 L 08/15/17 08:00 08/15/17 09:08 08/15/17 08:00 08/15/17 09:08 08/15/17 08:00 Laboratory Results 08/15/17 09:20 08/15/17 06:00 08/14/17 08/15/17 08/16/17 05:59 05:59 05:59 Intake Total 505 Output Total 0 Balance 505 PT 14.8 SEC (12.0-15.0) 08/14/17 14:09 INR 1.14 (0.83-1.16) 08/14/17 14:09 ICD10 Worksheet Patient Problems: Problems Problem Status Onset Ribs, multiple fractures Acute Wrist fracture, right Acute Afib Acute Altered mental status Acute Diarrhea Acute Failure to thrive Acute Fever Acute Severe sepsis Acute UTI (urinary tract infection) Acute Osteoarthritis of hip Chronic
[2017-08-15] MEDS ORDERED: PROTOCOL MAGNESIUM 1 DOSE IV PRN (11:32)
[2017-08-15] MEDS ORDERED: PROTOCOL POTASSIUM 1 DOSE MISC PRN (11:32)
--- NOTE | 2017-08-15 11:38 | HOSPPROG ---
Hospitalist Progress Note Assessment/Plan: #Polytrauma following mechanical fall #Right wrist/radial fracture: -Sugar Tong sling -F/u with Ortho in one week -No planned surgery during this hospitalization #Left 4-6 rib fracture -Mgmt per Trauma -No resp issues at this time #Acute on chronic Afib -still in Afib -Rate is controlled -cont Home Diltiazem -has failed cardioversion previously #chronic AC, held on admission, CHADS2: 3 -Ok to restart Eliquis on 08/16 per Trauma team -No planned immediate surgical interventions -No e/o acute bleeding #Chronic Pain Syndrome, Back Pain -Home Narcotics -Oxy for breakthrough -Lidoderm Patches #DVT proph: -SCD's while not on Eliquis #Hypokalemia: -start electrolyte replacement Disp: per Trauma ok to move out of the ICU from a medical perspective D/w team during team rounds Subjective: still in AFib, rate is controlled. Feels better. Objective: Vital Signs Temp Pulse Resp BP Pulse Ox 37.0 C 85 20 105/65 90 L 08/15/17 08:00 08/15/17 09:08 08/15/17 08:00 08/15/17 09:08 08/15/17 08:00 Laboratory Results 08/15/17 09:20 08/15/17 06:00 08/14/17 08/15/17 08/16/17 05:59 05:59 05:59 Intake Total 505 Output Total 0 Balance 505 PT 14.8 SEC (12.0-15.0) 08/14/17 14:09 INR 1.14 (0.83-1.16) 08/14/17 14:09 - Physical Exam Constitutional: no apparent distress Eyes: PERRL Ears, Nose, Mouth, Throat: moist mucous membranes, hearing normal Cardiovascular: irregularly irregular, No edema Respiratory: no respiratory distress, no rales or rhonchi, clear to auscultation Gastrointestinal: normoactive bowel sounds, soft, non-tender abdomen Skin: warm Neurologic: AAOx3 Psychiatric: interacting appropriately, not anxious, not encephalopathic Lymph, Heme, Immunologic: No petechiae ICD10 Worksheet Patient Problems: Problems Problem Status Onset Ribs, multiple fractures Acute Wrist fracture, right Acute Afib Acute Altered mental status Acute Diarrhea Acute Failure to thrive Acute Fever Acute Severe sepsis Acute UTI (urinary tract infection) Acute Osteoarthritis of hip Chronic
[2017-08-15] MEDS: oxyCODONE IR 5 MG TAB PO PRN ×2 (11:54→23:05)
[2017-08-15] MEDS: DOCUSATE SODIUM 100 MG CAP PO SCH ×2 (11:54→20:47)
[2017-08-15] MEDS ORDERED: POTASSIUM CL 10 MEQ TAB PO ONE (13:05)
[2017-08-16] MEDS: HYDROCODONE/APAP 5/325 TAB PO PRN ×2 (04:35→14:13)
[2017-08-16] MEDS: IBUPROFEN 600 MG TAB PO SCH ×3 (04:37→21:47)
[2017-08-16] MEDS: LEVOTHYROXINE 125 MCG TAB PO SCH (04:38)
[2017-08-16] MEDS: DOCUSATE SODIUM 100 MG CAP PO SCH ×2 (08:36→21:48)
[2017-08-16] MEDS: DILTIAZEM XR 240 MG CAP PO SCH (08:36)
[2017-08-16] MEDS: cycloSPORINE 0.05% 30 DROPERETTE/BOX EACHEYE SCH ×2 (08:37→21:49)
[2017-08-16] MEDS: TRAVOPROST Z 0.004% 2.5 ML OPHT.BTL EACHEYE SCH ×2 (08:38→21:51)
[2017-08-16] MEDS ORDERED: fentaNYL 75 MCG PATCH TD SCH (09:45)
[2017-08-16] MEDS: APIXABAN 5 MG TAB PO SCH ×2 (10:07→21:47)
[2017-08-16] MEDS ORDERED: POLYETHYLENE GLYCOL 3350 17 GM PKT PO PRN (12:22)
[2017-08-16] MEDS ORDERED: LACTULOSE 20 GM/30 ML UDCUP PO PRN (12:22)
[2017-08-16] MEDS ORDERED: BISACODYL 10 MG SUPP PR PRN (12:22)
--- NOTE | 2017-08-16 12:22 | TRAUMAPN ---
Trauma Progress Note Assessment/Plan: 72yo F s/p mechanical fall with right wrist fracture, left 4-6 rib fractures. A fib on eliquis. Chronic pain Appreciate hospitalist management of comorbidities Ortho consult - sling, f/u with ortho 1 week. No surgery planned Supplemental O2 PT/OT. Encouraged IS and ambulation Dispo: home vs SNF. Seen c Dr. Juarez S: complains of left chest wall pain. has not attempted to ambulate outside of room. Pain controlled O: Laying in bed, comfortable, NAD No increased WOB, CTAB RRR RUE in sling No left chest wall ecchymosis, nontender to palpation Skin warm and dry no ecchymosis, abrasions or rashes Mood and affect normal Neuro grossly intact Objective: Vital Signs Temp Pulse Resp BP Pulse Ox 37.2 C 69 16 121/64 H 92 08/16/17 11:52 08/16/17 11:52 08/16/17 11:52 08/16/17 11:52 08/16/17 11:52 Laboratory Results 08/15/17 09:20 08/16/17 04:17 08/15/17 08/16/17 08/17/17 05:59 05:59 05:59 Intake Total 505 500 Output Total 0 0 Balance 505 500 PT 14.8 SEC (12.0-15.0) 08/14/17 14:09 INR 1.14 (0.83-1.16) 08/14/17 14:09
--- NOTE | 2017-08-16 12:50 | HOSPPROG ---
Hospitalist Progress Note Assessment/Plan: #Polytrauma following mechanical fall #Right wrist/radial fracture: -Sugar Tong sling -F/u with Ortho in one week -No planned surgery during this hospitalization #Left 4-6 rib fracture -Mgmt per Trauma -No resp issues at this time. She is requiring 1-2 L supplemental O2 #Acute on chronic Afib -Rate is controlled -cont Home Diltiazem -has failed cardioversion previously #chronic AC, held on admission, CHADS2: 3 -Back on Eliquis -No planned immediate surgical interventions -No e/o acute bleeding #Chronic Pain Syndrome, Back Pain -Home Narcotics -Oxy for breakthrough -Lidoderm Patches #DVT proph: -SCD's while not on Eliquis #Hypokalemia: -start electrolyte replacement Plan: -CPM -Pain control -Cont IS -Encourage ambulation -appears stable from a medical perspective Dispo: per trauma. May need a SNF. D/W Trauma at surgery Subjective: some left sided pain. Afebrile. No SOB. Occassional cough. Pain is well controlled. Objective: Vital Signs Temp Pulse Resp BP Pulse Ox 37.2 C 69 16 121/64 H 92 08/16/17 11:52 08/16/17 11:52 08/16/17 11:52 08/16/17 11:52 08/16/17 11:52 Laboratory Results 08/15/17 09:20 08/16/17 04:17 08/15/17 08/16/17 08/17/17 05:59 05:59 05:59 Intake Total 505 500 Output Total 0 0 Balance 505 500 PT 14.8 SEC (12.0-15.0) 08/14/17 14:09 INR 1.14 (0.83-1.16) 08/14/17 14:09 - Physical Exam Constitutional: no apparent distress Eyes: PERRL Ears, Nose, Mouth, Throat: moist mucous membranes, hearing normal Cardiovascular: regular rate and rhythym, No edema Respiratory: clear to auscultation Gastrointestinal: normoactive bowel sounds, soft, non-tender abdomen Skin: warm Neurologic: AAOx3 Psychiatric: interacting appropriately, not anxious, not encephalopathic Lymph, Heme, Immunologic: No petechiae ICD10 Worksheet Patient Problems: Problems Problem Status Onset Ribs, multiple fractures Acute Wrist fracture, right Acute Afib Acute Altered mental status Acute Diarrhea Acute Failure to thrive Acute Fever Acute Severe sepsis Acute UTI (urinary tract infection) Acute Osteoarthritis of hip Chronic
--- NOTE | 2017-08-16 13:14 | PDMN ---
Medical Necessity Medical necessity: Change to IP, as of 08/16/17, per PA; los >2 mn for ongoing management of R wrist fx & L rib fxs s/p fall; pt unsafe to dc home alone & unable to care for self; requires continued PT/OT for impaired mobility w/ decreased balance & coordination; hx recent fall w/concussion, AFIB on AC, htn; per progress note & order 08/16/17
[2017-08-16] MEDS: SENNOSIDES/DOCUSATE SODIUM TAB PO SCH ×2 (14:38→21:48)
--- NOTE | 2017-08-16 16:00 | ASMTCMCOM ---
CM Note CM Note Notes: Patient admitted after a fall; she sustained some L rib fractures and a R radius fracture. She lives at home independently and has 3 hrs/day, 5 days/week private duty caregiving through [employer]. She'd like to return home but acknowleges her need for more care/supervision right now. She does have the ability to increase caregiver hours through [employer], including supervision at night. We could augment this with skilled home care. I sent a referral to a few home care agencies. She is also amenable to SNF but prefers [facility] which has no beds until next week. She agreed to a referral to [facility], as well. Patient will take this evening to think about the safest possible discharge option. Case Management will follow up with her first thing in the morning. Date Signed: 08/16/2017 03:59 PM Electronically Signed By:Gemma Eli RN
--- NOTE | 2017-08-16 19:50 | TRAUMAPN ---
Trauma Progress Note Assessment/Plan: 72yo F s/p mechanical fall with right wrist fracture, left 4-6 rib fractures. A fib on eliquis. Chronic pain Appreciate hospitalist management of comorbidities Ortho consult - sling, f/u with ortho 1 week. No surgery planned Supplemental O2 PT/OT. Encouraged IS and ambulation Dispo: home vs SNF. S: complains of left chest wall pain. has not attempted to ambulate outside of room. Pain controlled Objective: Vital Signs Temp Pulse Resp BP Pulse Ox 37.4 C 101 H 20 121/64 H 93 08/16/17 16:00 08/16/17 16:00 08/16/17 16:00 08/16/17 16:00 08/16/17 16:00 08/15/17 08/16/17 08/17/17 05:59 05:59 05:59 Intake Total 250 Balance 250 PT 14.8 SEC (12.0-15.0) 08/14/17 14:09 INR 1.14 (0.83-1.16) 08/14/17 14:09 Physical Exam - Physical Exam General Appearance: WD/WN, alert, no apparent distress EENT: PERRL/EOMI, normal ENT inspection, No scleral icterus (R), No scleral icterus (L), No hearing deficit Neck: non-tender, full range of motion Respiratory: chest non-tender, lungs clear Cardiac/Chest: irregularly irregular Abdomen: normal bowel sounds, non-tender, soft Skin: other (ecchymosis L elbow) Extremities: other (splint and sling R arm) Neuro/Psych: no motor/sensory deficits, normal mood/affect
[2017-08-16] MEDS ORDERED: SENNOSIDES/DOCUSATE SODIUM TAB PO SCH (21:00)
[2017-08-16] MEDS: CYCLOBENZAPRINE 10 MG TAB PO PRN (22:01)
[2017-08-16] MEDS: oxyCODONE IR 5 MG TAB PO PRN (22:01)
[2017-08-17] MEDS: TEMAZEPAM 15 MG CAP PO PRN (00:46)
[2017-08-17] MEDS: IBUPROFEN 600 MG TAB PO SCH (05:28)
[2017-08-17] MEDS: LEVOTHYROXINE 125 MCG TAB PO SCH (05:29)
[2017-08-17] MEDS: HYDROCODONE/APAP 5/325 TAB PO PRN ×2 (07:45→07:50)
[2017-08-17] MEDS: APIXABAN 5 MG TAB PO SCH (07:46)
[2017-08-17] MEDS: SENNOSIDES/DOCUSATE SODIUM TAB PO SCH (07:46)
[2017-08-17] MEDS: DILTIAZEM XR 240 MG CAP PO SCH (07:46)
[2017-08-17] MEDS: DOCUSATE SODIUM 100 MG CAP PO SCH (07:47)
--- NOTE | 2017-08-17 08:45 | TRAUMAPN ---
Trauma Progress Note Assessment/Plan: 72 yo s/p mechanical fall over cat. Non operative right forearm fx Left 4-6 rib fx still painful with initiation of movement Good pulmonary toilet PT/OT notes reviewed SNF versus home with home health Alert oriented No respiratory distress Neuro intact Right arm splint and sling D/c today if able f/u with ortho 1 week Objective: Vital Signs Temp Pulse Resp BP Pulse Ox 36.6 C 80 18 148/97 H 89 L 08/17/17 07:26 08/17/17 07:26 08/17/17 07:26 08/17/17 07:26 08/17/17 07:26 08/16/17 08/17/17 08/18/17 05:59 05:59 05:59 Intake Total 250 500 Balance 250 500 PT 14.8 SEC (12.0-15.0) 08/14/17 14:09 INR 1.14 (0.83-1.16) 08/14/17 14:09
[2017-08-17] MEDS: cycloSPORINE 0.05% 30 DROPERETTE/BOX EACHEYE SCH (11:32)
[2017-08-17] MEDS: TRAVOPROST Z 0.004% 2.5 ML OPHT.BTL EACHEYE SCH (11:40)
[2017-08-17 12:08] VITALS: BP 110/72; PULSE 90; RESP 16; TEMP 99; O2SAT 93
--- NOTE | 2017-08-17 12:17 | PDIAF ---
- Diagnosis Diagnosis: Rib fracture/R ue fx Code Status: Full Code - Medication Management Discharge Medications: Medications to Continue on Transfer Apixaban [Eliquis] 5 mg PO BID #60 tab 01/07/15 [Last Taken 08/13/17 21:00] Oxymorphone HCl 5 mg PO BID PRN 07/18/17 [Last Taken 08/14/17 03:00] Calcium Carbonate [Oyster Shell Calcium 500 mg (*)] 500 mg PO DAILY 08/14/17 [ Last Taken Unknown] Cholecalciferol Vit D3 [Vitamin D3 (*)] 1,000 units PO DAILY 08/14/17 [Last Taken Unknown] Cyclobenzaprine [Flexeril 10 MG (*)] 10 mg PO HS PRN 08/14/17 [Last Taken ] Diltiazem HCl [Cartia XT 240mg] 240 mg PO DAILY@1200 08/14/17 [Last Taken ] Levothyroxine [Synthroid 125 mcg (*)] 125 mcg PO DAILY06 08/14/17 [Last Taken ] Modafinil [Provigil 100 mg (*)] 100 mg PO DAILY PRN 08/14/17 [Last Taken Unknown ] Temazepam [Restoril 15 MG (*)] 15 mg PO HSPRN PRN 08/14/17 [Last Taken 08/13/17] Travoprost Z 0.004% [Travatan Z 0.004% (*)] 1 drops EACHEYE BID 08/14/17 [Last Taken Unknown] Vortioxetine Hydrobromide [Trintellix] 20 mg PO DAILY@1200 08/14/17 [Last Taken 08/13/17] cycloSPORINE 0.05% [Restasis Opht Drops(*)] 1 drop EACHEYE BID 08/14/17 [Last Taken Unknown] fentaNYL [Duragesic 75 MCG Patch (*)] 75 mcg TD Q48H 08/14/17 [Last Taken ] rOPINIRole HCL [Requip 2mg (*)] 2 mg PO HS 08/14/17 [Last Taken 08/13/17] Apixaban [Eliquis] 5 mg PO BID tab 08/17/17 [Last Taken Unknown] Diltiazem Xr [Dilacor Xr] 240 mg PO DAILY cap 08/17/17 [Last Taken Unknown] Hydrocodone/APAP 5/325 [[place] 5/325 (*)] 1 - 2 tab PO Q6HRS PRN #30 tab [Last Taken Unknown] Ibuprofen [Motrin (*)] 600 mg PO Q8HRS 10 Days #30 tab 08/17/17 [Last Taken Unknown] Discharge Medications: Refer to the Discharge Home Medication list for PRN reason. - Orders Services needed: Home Care, Registered Nurse, Physical Therapy, Occupational Therapy Home Care Face to Face: I certify that this patient was under my care and that I had the required [id number] encounter meeting the encounter requirements on the discharge day. My findings support the fact that the patient is homebound as defined in Home Care Face to Face Continued: CMS Chapter 7 Medicare Benefits Manual 30.1.1 , The condition of the patient is such that there exists a normal inability to leave home and consequently, leaving home would require a considerable and taxing effort. Isolation Type: None Diet Recommendation: no restrictions on diet Diet Texture: Regular Texture Diet Activity/Weight Bearing Restrictions: non weight wearing r upper extremity Equipment: sling RUE for comfort - Follow Up Care Current Providers and Referrals: Patient,NotPresent [Unknown] - As per Instructions Josesito Quijano MD [Medical Doctor] - follow up in 1 week (call to schedule)
[2017-08-17] MEDS: oxyCODONE IR 5 MG TAB PO PRN (12:50)
--- NOTE | 2017-08-17 15:17 | HOSPPROG ---
Hospitalist Progress Note Assessment/Plan: #Polytrauma following mechanical fall #Right wrist/radial fracture: -Sugar Tong sling -F/u with Ortho in one week -No planned surgery during this hospitalization #Left 4-6 rib fracture -Pain is well controlled. -Mgmt per Trauma -No resp issues at this time #Acute on chronic Afib -Rate is controlled -cont Home Diltiazem -has failed cardioversion previously #chronic AC, held on admission, CHADS2: 3 -Back on Eliquis -No planned immediate surgical interventions -No e/o acute bleeding #Chronic Pain Syndrome, Back Pain -Home Narcotics -Oxy for breakthrough -Lidoderm Patches #Hypokalemia Plan: Medically cleared for discharge Subjective: feels better. ready for discharge. Objective: Vital Signs Temp Pulse Resp BP Pulse Ox 37.2 C 90 16 110/72 93 08/17/17 12:00 08/17/17 12:00 08/17/17 12:00 08/17/17 12:00 08/17/17 12:00 08/16/17 08/17/17 08/18/17 05:59 05:59 05:59 Intake Total 250 500 Balance 250 500 PT 14.8 SEC (12.0-15.0) 08/14/17 14:09 INR 1.14 (0.83-1.16) 08/14/17 14:09 - Physical Exam Constitutional: no apparent distress Eyes: PERRL Ears, Nose, Mouth, Throat: moist mucous membranes Cardiovascular: regular rate and rhythym, No edema Respiratory: no respiratory distress, no rales or rhonchi Gastrointestinal: normoactive bowel sounds Skin: warm Neurologic: AAOx3 Psychiatric: interacting appropriately, not anxious, not encephalopathic ICD10 Worksheet Patient Problems: Problems Problem Status Onset Afib Acute Altered mental status Acute Diarrhea Acute Failure to thrive Acute Fever Acute Ribs, multiple fractures Acute Severe sepsis Acute UTI (urinary tract infection) Acute Wrist fracture, right Acute Osteoarthritis of hip Chronic
--- NOTE | 2017-08-17 17:13 | ASDISCHSUM ---
Discharge Information Plan Status:Home with Home Health Medically Cleared to Leave: Discharge Date:08/17/2017 02:27 PM CM D/C Disposition:Home Health Service ADT D/C Disposition:[id number] Projected Discharge Date:08/17/2017 11:00 AM Transportation at D/C:Friend Discharge Delay Reason: Follow-Up Date:08/17/2017 11:00 AM Discharge Slot: Final Diagnosis: Placement Information Referral Type:*Mcc/SNF Referral ID:[id number] Provider Name: Address 1: Phone Number: Address 2: Fax Number: City: Selection Factors: State: Referral Type:*Home Health Care Services Referral ID:[id number] Provider Name:[facility] ([facility]) Address 1:[address] [address] Address 2: City:[place] Selection Factors: State:[place] Patient Contact Information Contact Name:AIDEN Relationship:Sister Address:[address] City:[place] Alternate Phone: State/Zip Code:[place] [address] Email: Financial Information Financial Class:Medicare Primary Plan Desc:MEDICARE INPATIENT Primary Plan Number:[id number] Secondary Plan Desc:[facility] Secondary Plan Number:[id number] Assessment Information [facility] CM Progress Note CM Note CM Note Notes: Patient admitted after a fall; she sustained some L rib fractures and a R radius fracture. She lives at home independently and has 3 hrs/day, 5 days/week private duty caregiving through [employer]. She'd like to return home but acknowleges her need for more care/supervision right now. She does have the ability to increase caregiver hours through [employer], including supervision at night. We could augment this with skilled home care. I sent a referral to a few home care agencies. She is also amenable to SNF but prefers [facility] which has no beds until next week. She agreed to a referral to [facility], as well. Patient will take this evening to think about the safest possible discharge option. Case Management will follow up with her first thing in the morning. Date Signed: 08/16/2017 03:59 PM Electronically Signed By:Gemma Eli RN Case Management Discharge Plan Note Case Management Discharge Discharge Order Complete? Answers: Yes Transportation Arranged Answers: Family/Friends Faxed Final Orders Answers: Yes Agency/Facility Transfer Answers: Yes Report Printed & Faxed to Receiving Agency Discharge Comments Notes: Cinda met w/ Pt. this am to confirm her d/c wishes. Pt. would like to go home with both skilled and unskilled homecare. Jas from [facility] came to meet Pt. PtAlize medina with plan for RN, PT, OT through [facility]. Pt. will have unskilled care through [facility] caregivers. Sent d/c paperwork to [facility] through [employer]. Per RN, Pt. has a ride home. Date Signed: 08/17/2017 12:44 PM Electronically Signed By:Cassi Novak LCSW Intervention Information Intervention Type:*SILVA-Signed Date of Service:08/15/2017 10:30 AM Patient Type:Observation Staff Member:Ifeoma Fernandez Hours: Discipline: Severity: Comment: Intervention Type:*Occurence 72 Date of Service:08/14/2017 01:12 PM Patient Type:Inpatient Staff Member:RIKI Casanova Shelly Hours:0.25 Discipline: Severity:1 (0-1 Hours) Comment:Occ 72 for 08/14/2017 13:12 through 08/01 12:40 as patient discharged 08/17/2017 12:15 (< 2 MN LOS after patient admission status changed from observation to inpatient).
--- NOTE | 2017-08-17 22:21 | PDDCSUM ---
Discharge Summary Discharge Summary: Date of admission 08/14/2017 Date of discharge 08/17/2017 Of the principal diagnoses: Multiple left rib fractures Right forearm fracture Fall from standing height Discharged to home with Home Health Services Occupational therapy physical therapy and aides for activities of daily living. The patient is a 72-year-old woman with known back problems who presents to the hospital after falling over her cat patient denied any loss of consciousness but had pain in her left chest and right forearm. She was seen in consultation by Dr. Finney from orthopedic surgery with forearm splint and follow up in 1 week. The patient was given medication for pain and a rib fracture pain was tolerated with oral analgesics on discharge. Major issues are getting up from a seated position she does have home health workers already in place for her back but will require physical therapy and will occupational therapy also. Medications on discharge are her home medications including new medication for pain oxycodone. Oxymorphone HCl 5 mg PO BID PRN 07/18/17 [Last Taken 08/14/17 03:00] Calcium Carbonate [Oyster Shell Calcium 500 mg (*)] 500 mg PO DAILY 08/14/17 [ Last Taken Unknown] Cholecalciferol Vit D3 [Vitamin D3 (*)] 1,000 units PO DAILY 08/14/17 [Last Taken Unknown] Cyclobenzaprine [Flexeril 10 MG (*)] 10 mg PO HS PRN 08/14/17 [Last Taken ] Diltiazem HCl [Cartia XT 240mg] 240 mg PO DAILY@1200 08/14/17 [Last Taken ] Levothyroxine [Synthroid 125 mcg (*)] 125 mcg PO DAILY06 08/14/17 [Last Taken ] Modafinil [Provigil 100 mg (*)] 100 mg PO DAILY PRN 08/14/17 [Last Taken Unknown ] Temazepam [Restoril 15 MG (*)] 15 mg PO HSPRN PRN 08/14/17 [Last Taken 08/13/17] Travoprost Z 0.004% [Travatan Z 0.004% (*)] 1 drops EACHEYE BID 08/14/17 [Last Taken Unknown] Vortioxetine Hydrobromide [Trintellix] 20 mg PO DAILY@1200 08/14/17 [Last Taken 08/13/17] cycloSPORINE 0.05% [Restasis Opht Drops(*)] 1 drop EACHEYE BID 08/14/17 [Last Taken Unknown] fentaNYL [Duragesic 75 MCG Patch (*)] 75 mcg TD Q48H 08/14/17 [Last Taken ] rOPINIRole HCL [Requip 2mg (*)] 2 mg PO HS 08/14/17 [Last Taken 08/13/17] She will follow up with the orthopedic in surgery in 1 week
== END 2017-08-17 14:27 | disposition home health service (06) | DRG 184 ==
LOC: EDUNIT# → INTOOBSV 12:40 → F2N 15:39 → F3E 08-15 13:49 → OBSVTOIN 08-16 12:40
PROVIDERS: ADMIT Surgery; ATTEND Surgery
DX: S22.42XA Multiple fractures of ribs, left side, initial encounter for closed fracture (principal); S52.501A Unspecified fracture of the lower end of right radius, initial encounter for closed fracture; W01.0XXA Fall on same level from slipping, tripping and stumbling without subsequent striking against object, initial encounter; Y92.000 Kitchen of unspecified non-institutional (private) residence as the place of occurrence of the external cause; E87.6 Hypokalemia; G89.29 Other chronic pain; E06.3 Autoimmune thyroiditis; I48.2 Chronic atrial fibrillation; G25.81 Restless legs syndrome; K21.9 Gastro-esophageal reflux disease without esophagitis; G47.30 Sleep apnea, unspecified; E66.9 Obesity, unspecified; Z68.34 Body mass index [BMI] 34.0-34.9, adult; Z96.643 Presence of artificial hip joint, bilateral; Z79.01 Long term (current) use of anticoagulants; Z85.42 Personal history of malignant neoplasm of other parts of uterus
CPT/HCPCS: 97116-GP; 97161-GP; 97165-GO; 97535-GO; G0378; G8978-GP-CK; G8979-GP-CJ; G8987-GO-CJ; G8988-GO-CI; G8988-GO-CJ; G8989-GO-CJ; J1170

== ENCOUNTER → 2017-08-28 | Outpatient (CLI) | payer OTHER | LOC: FIMAGING 13:26 | PROVIDERS: ATTEND Physician Assistant | DX: S52.591A Other fractures of lower end of right radius, initial encounter for closed fracture (principal) ==

== ENCOUNTER 2017-10-16 12:24 | Inpatient (IN) | payer OTHER ==
[2017-10-16] MEDS ORDERED: FAMOTIDINE 20 MG/NACL 50 ML IV ONE (13:57)
[2017-10-16] MEDS ORDERED: HYDROmorphONE/DILAUDID 2 MG/ML INJ IVP ONE ×2 (13:57→15:27)
[2017-10-16] MEDS ORDERED: ONDANSETRON DISINTEGRATING 4 MG TAB PO ONE (13:57)
[2017-10-16] MEDS ORDERED: NS 1,000 ML IV ONE (13:57)
--- NOTE | 2017-10-16 14:01 | CPEKG ---
Heart Rate: 119 RR Interval: 504 QRSD Interval: 82 QT Interval: 328 QTC Interval: 462 QRS [place]: 58 T Wave [place]: -27 EKG Severity - ABNORMAL ECG - EKG Impression: ATRIAL FIBRILLATION, V-RATE 90-156 Electronically Signed By: Eugene Ramos 16-Oct-2017 14:07:20
--- NOTE | 2017-10-16 14:01 | EDPHY ---
H & P Stated Complaint: abd pain/malaise Time Seen by Provider: 10/16/17 13:50 HPI/ROS: CHIEF COMPLAINT: Abdominal pain HISTORY OF PRESENT ILLNESS: The patient is a 72-year-old female with a history of AFib on as well as hypothyroidism, endometrial cancer post hysterectomy, appendectomy as well as chronic pain who states that on Saturday she began having abdominal discomfort no nausea vomiting. She then began having nonbloody diarrhea on Saturday. She states that now she feels dehydrated and this morning the pain seemed to move up into her chest. She denies shortness of breath. She does wear oxygen at night. No recent fevers. She also states that she could tell she was in AFib. REVIEW OF SYSTEMS: Constitutional: denies: chills, fever, recent illness, recent injury EENTM: denies: blurred vision, double vision, nose congestion Respiratory: denies: cough, shortness of breath Cardiac: denies: chest pain, irregular heart rate, lightheadedness, palpitations Gastrointestinal/Abdominal: See HPI denies: vomiting, blood streaked stools Genitourinary: denies: dysuria, frequency, hematuria, pain Musculoskeletal: denies: joint pain, muscle pain Skin: denies: lesions, rash, jaundice, bruising Neurological: denies: headache, numbness, paresthesia, tingling, dizziness, weakness Hematologic/Lymphatic: denies: blood clots, easy bleeding, easy bruising Immunologic/allergic: denies: HIV/AIDS, transplant EXAM: GENERAL: Slightly diaphoretic, obese and in no acute distress. HEAD: Atraumatic, normocephalic. EYES: Pupils equal round and reactive to light, extraocular movements intact, sclera anicteric, conjunctiva are normal. ENT: TMs normal, nares patent, oropharynx clear without exudates. Moist mucous membranes. NECK: Normal range of motion, supple without lymphadenopathy or JVD. LUNGS: Breath sounds clear to auscultation bilaterally and equal. No wheezes rales or rhonchi. HEART: Tachycardic and irregular without murmurs, rubs or gallops. ABDOMEN: Soft, nontender, normoactive bowel sounds. No guarding, no rebound. No masses appreciated. BACK: No CVA tenderness, no spinal tenderness, step-offs or deformities EXTREMITIES: Normal range of motion, no pitting or edema. No clubbing or cyanosis. NEUROLOGICAL: Cranial nerves II through XII grossly intact. Normal speech, normal gait. 5/5 strength, normal movement in all extremities, normal sensation PSYCH: Normal mood, normal affect. SKIN: Warm, dry, normal turgor, no visible rashes or lesions. Source: Patient Exam Limitations: No limitations - Personal History Tetanus Vaccine Date: WITHIN 10 YRS - Medical/Surgical History Hx Asthma: No Hx Chronic Respiratory Disease: No Hx Diabetes: Yes Hx Cardiac Disease: Yes Hx Renal Disease: No Hx Cirrhosis: No Hx Alcoholism: No Hx HIV/AIDS: No Hx Splenectomy or Spleen Trauma: No Other PMH: home O2 at night; endometrial CA; hysterectomy; Bilateral hip replacements, sleep apnea, chronic back pain, DDD, thyroid disease, Romeo, GERD, Right rotator cuff repair, Afib. Urosepsis, recent radiation. chronic pain - Family History Significant Family History: No pertinent family hx - Social History Smoking Status: Never smoked Alcohol Use: Sober Drug Use: None Constitutional: Initial Vital Signs Temperature (C) 36.9 C 10/16/17 12:27 Heart Rate 101 H 10/16/17 12:27 Respiratory Rate 18 10/16/17 12:27 Blood Pressure 164/104 H 10/16/17 12:27 O2 Sat (%) 91 L 10/16/17 12:27 O2 Delivery Mode Room Air O2 (L/minute) 2 Allergies/Adverse Reactions: codeine [Codeine] Allergy (Mild, Verified 10/16/17 12:29) Vomiting Home Medications: Medication Instructions Recorded Apixaban [Eliquis] 5 mg PO BID #60 tab 01/07/15 Oxymorphone HCl 5 mg PO BID PRN 07/18/17 Calcium Carbonate [Oyster Shell 500 mg PO DAILY 08/14/17 Calcium 500 mg (*)] Cholecalciferol Vit D3 [Vitamin D3 1,000 units PO DAILY 08/14/17 (*)] Cyclobenzaprine [Flexeril 10 MG 20 mg PO HS 08/14/17 (*)] Diltiazem HCl [Cartia XT 240mg] 240 mg PO DAILY 08/14/17 Levothyroxine [Synthroid 125 mcg 125 mcg PO DAILY06 08/14/17 (*)] Temazepam [Restoril 15 MG (*)] 15 mg PO HSPRN PRN 08/14/17 Vortioxetine Hydrobromide 20 mg PO DAILY@1200 08/14/17 [Trintellix] cycloSPORINE 0.05% [Restasis Opht 1 drop EACHEYE BID 08/14/17 Drops(*)] fentaNYL [Duragesic 75 MCG Patch 75 mcg TD Q48H 08/14/17 (*)] rOPINIRole HCL [Requip 2mg (*)] 2 mg PO HS 08/14/17 Hydrocodone/APAP 5/325 [Umbarger 2 tab PO HS 10/16/17 5/325 (*)] Medical Decision Making - Diagnostics EKG Interpretation: An EKG obtained and was read and documented in trace view. Please see trace view for full reading and report. Atrial fibrillation, similar to previous Imaging: Discussed imaging studies w/ game designer/creative director Radiologist ED Course/Re-evaluation: 3:15 p.m. The patient has cholecystitis on CT scan. She has a history of gallstones seen on ultrasound previously. She has an elevated white count. I have paged surgery. I have ordered antibiotics. I discussed the case with Dr. Ramires who will consult and recommends hospital admission until antibiotics are given until the anticoagulation is worn off. 3:20 p.m. I discussed the case with Dr. Lorie Ware who will admit to the medical service. Differential Diagnosis: Partial list of the Differential diagnosis considered include but were not limited to; cholecystitis, urinary tract infection, perforation and although unlikely based on the history and physical exam, I also considered ischemia, acute coronary disease, PE, pneumonia. Critical Care Time: Critical care time spent by me, Dr. Ramos exclusive with this patient was 35 minutes, exclusive of the PA time exclusive of procedures. The organ system that was at risk was gastrointestinal and I gave consultation, fluids, antibiotics and admission to prevent worsening of the patient's condition - Data Points Laboratory Results: Laboratory Results 10/16/17 13:52 10/16/17 13:00 Microbiology Results: MICROBIOLOGY 10/16/17 15:03 Unspecified Urine Culture - Preliminary Medications Given: Hydrocodone Bitart/Acetaminophen (Umbarger 5/325) 2 tab PO HS MARIO Stop: 10/26/17 20:59 Last Admin: 10/16/17 21:37 Dose: 2 tab Cyclobenzaprine HCl (Flexeril) 20 mg PO HS [facility] Stop: 04/14/18 20:59 Last Admin: 10/16/17 21:37 Dose: 20 mg Cyclosporine (Restasis) 1 drop EACHEYE BID [facility] Stop: 04/14/18 20:59 Last Admin: 10/17/17 09:54 Dose: 1 junior Diltiazem HCl (Dilacor Xr) 240 mg PO DAILY MARIO Stop: 04/15/18 08:59 Last Admin: 10/17/17 09:54 Dose: 240 mg Fentanyl (Duragesic) 75 mcg TD Q48H [facility] Stop: 10/26/17 19:44 Last Admin: 10/16/17 21:36 Dose: 75 mcg Hydromorphone HCl (Dilaudid) 0.2 - 0.4 mg IVP Q2HRS PRN PRN Reason: Pain, Severe Unable to Take PO Stop: 10/26/17 19:39 Last Admin: 10/16/17 21:28 Dose: 0.4 mg Levofloxacin/Dextrose (Levaquin 750 Mg (Premix)) 150 mls @ 100 mls/hr IV DAILY MARIO PRN Reason: Protocol Stop: 11/16/17 08:59 Last Admin: 10/17/17 09:54 Dose: 150 mls Metronidazole/Sodium Chloride (Flagyl 500 Mg (Premix)) 100 mls @ 100 mls/hr IV Q8HRS MARIO PRN Reason: Protocol Stop: 11/15/17 21:59 Last Admin: 10/17/17 05:40 Dose: 100 mls Levothyroxine Sodium (Synthroid) 125 mcg PO DAILY06 [facility] Stop: 04/15/18 05:59 Last Admin: 10/17/17 05:40 Dose: 125 mcg Miscellaneous Medication (Vortioxetine Hydrobromide [Trintellix]) 20 mg PO DAILY@1200 [facility] Stop: 04/15/18 11:59 Last Admin: 10/17/17 12:36 Dose: 20 mg Ondansetron HCl (Zofran) 4 mg IVP Q4 PRN PRN Reason: Nausea/Vomiting, Can't Take PO Stop: 04/14/18 19:39 Last Admin: 10/17/17 12:35 Dose: 4 mg Oxycodone HCl (Oxycodone Ir) 5 - 10 mg PO Q3HRS PRN PRN Reason: Pain, Severe Able to Take PO Stop: 10/26/17 19:39 Last Admin: 10/17/17 12:35 Dose: 5 mg Promethazine HCl (Phenergan) 6.25 mg IVP Q6 PRN PRN Reason: Nausea/Vomiting, Can't Take PO Stop: 04/14/18 19:39 Last Admin: 10/16/17 20:42 Dose: 6.25 mg Ropinirole HCl (Requip) 2 mg PO HS MARIO Stop: 04/14/18 20:59 Last Admin: 10/16/17 21:38 Dose: 2 mg Discontinued Medications Hydromorphone HCl (Dilaudid) 0.5 mg IVP EDNOW ONE Stop: 10/16/17 13:58 Last Admin: 10/16/17 14:03 Dose: 0.5 mg Hydromorphone HCl (Dilaudid) 1 mg IVP EDNOW ONE Stop: 10/16/17 15:28 Last Admin: 10/16/17 16:24 Dose: Not Given Sodium Chloride (Ns) 1,000 mls @ 0 mls/hr IV EDNOW ONE; Wide Open PRN Reason: Protocol Stop: 10/16/17 13:58 Last Admin: 10/16/17 14:03 Dose: 1,000 mls Famotidine/Sodium Chloride (Pepcid 20 Mg (Premix)) 50 mls @ 200 mls/hr IV EDNOW ONE Stop: 10/16/17 14:11 Last Admin: 10/16/17 14:03 Dose: 50 mls Sodium Chloride (Ns) 3,000 mls @ 6,000 mls/hr 30 ml/kg infuse over 30 min ( 3000 ml) IV EDNOW ONE PRN Reason: Protocol Stop: 10/16/17 15:23 Last Admin: 10/16/17 15:11 Dose: 2,000 mls Levofloxacin/Dextrose (Levaquin 750 Mg (Premix)) 150 mls @ 100 mls/hr IV EDNOW ONE PRN Reason: Protocol Stop: 10/16/17 16:42 Last Admin: 10/16/17 16:22 Dose: 150 mls Metronidazole/Sodium Chloride (Flagyl 500 Mg (Premix)) 100 mls @ 100 mls/hr IV EDNOW ONE PRN Reason: Protocol Stop: 10/16/17 16:13 Last Admin: 10/16/17 15:21 Dose: 100 mls Sodium Chloride (Ns) 1,000 mls @ 100 mls/hr IV CONT MARIO Stop: 10/17/17 05:44 Last Admin: 10/16/17 21:36 Dose: 1,000 mls Ondansetron HCl (Zofran Odt) 4 mg PO EDNOW ONE Stop: 10/16/17 13:58 Last Admin: 10/16/17 14:03 Dose: 4 mg Departure - Departure Disposition: [facility] Inpatient Acute Clinical Impression: Cholecystitis, acute Sepsis Qualifiers: Sepsis type: sepsis due to unspecified organism Qualified Code(s): A41.9 - Sepsis, unspecified organism Condition: Fair
[2017-10-16 14:10] LABS: INR 1.41 (0.83-1.16); PROTIME(PATIENT) 17.4 SEC (12.0-15.0)
[2017-10-16 14:30] LABS: PLATELET COUNT 331 10^3/uL (150-400)
[2017-10-16] MEDS ORDERED: IOPAMIDOL (ISOVUE-300) 100 ML BTL ONE (14:44)
[2017-10-16] MEDS ORDERED: NS 3,000 ML IV ONE (14:54)
--- NOTE | 2017-10-16 17:18 | GHP ---
[f rep st] HISTORY AND PHYSICAL DATE OF ADMISSION: 10/16/2017 Asked to see the patient by the emergency room physician in regard to probable acute cholecystitis, c holelithiasis. This 72-year-old female has had several days of epigastric and right upper quadrant pain, progressing up in the sternum, worsening today. She came to the emergency department where her laboratory test shows a white count of 22,000, and a CT scan shows a distended gallbladder, thick walled with gallsto taran and some pericholecystic fluid. PAST MEDICAL HISTORY: The patient has an allergy to codeine. HOME MEDICATIONS: Include Eliquis, which she took at 11:30 am this morning, Flexeril, cyclosporine e ye drops, diltiazem, fentanyl patch, hydrocodone, levothyroxine, oxymorphone, ropinirole, temazepam a nd Trintellix. PREVIOUS SURGERY: Includes recent right wrist for nonhealing fracture, vulvar carcinoma, laparoscopi c hysterectomy for endometrial carcinoma. REVIEW OF SYSTEMS: Positive atrial fibrillation. She denies a heart attack, diabetes, epilepsy, or rheumatic fever. SOCIAL HISTORY: Nonsmoker, nondrinker. PHYSICAL EXAM: GENERAL: Pleasant, obese female. CARDIAC: Examination the heart reveals an irregul ar and somewhat rapid rhythm consistent with known atrial fibrillation, that is why she is on Eliquis . ABDOMEN: Soft, but clearly tender in the right upper quadrant with a positive Mccauley sign. There are healed laparoscopy incisions. ASSESS: Distended gallbladder, cholelithiasis, and slight gallbladder wall thickening with perichole cystic fluid consistent with acute cholecystitis. Because of the Eliquis, I would not recommend surg chevy today, but waiting 72 hours, which would bring us to Saturday morning for a cholecystectomy. IV antibiotics would be appropriate treatment as well as n.p.o. status unless she becomes pain-free prio r to the time of surgery. I will follow the patient with you. I explained the rationale for waiting . It is reasonably likely the patient can have a laparoscopic cholecystectomy, although it is possib le she could require an open operation. /[id number]/MODL
[2017-10-16] MEDS ORDERED: traMADol 50 MG TAB PO PRN (19:40)
[2017-10-16] MEDS ORDERED: ACETAMINOPHEN 325 MG TAB PO PRN (19:40)
[2017-10-16] MEDS ORDERED: OXYMORPHONE HCL 5 MG PO PRN (19:43)
[2017-10-16] MEDS ORDERED: NS 1,000 ML IV SCH (19:45)
--- NOTE | 2017-10-16 20:28 | GHP ---
[f rep st] HISTORY AND PHYSICAL DATE OF ADMISSION: 10/16/2017 CHIEF COMPLAINT: Epigastric pain. HISTORY: The patient is a 72-year-old female who has had epigastric to right upper quadrant pain for the last 5 days. Initially, she thought it was a stomach bug but it got worse rather than better. This morning, she just ate a piece of toast and it caused severe worsening right upper quadrant pain and she vomited. The pain started radiating up into her lower chest. It is worse with eating. She has had some associated diarrhea. She was diagnosed with cholecystitis in the emergency room and see n by Dr. Ramires. Plan is gallbladder surgery in a couple days. While in the ER, she went into ra pid AFib and was bumped up her level of care to cardiac unit, although she is back down into a more c ontrolled rate. PAST MEDICAL HISTORY: 1. Atrial fibrillation. 2. Endometrial cancer with recurrence in the vaginal wall, status post radiation therapy. 3. Chronic back pain with continuous narcotic dependency. 4. Obstructive sleep apnea, on CPAP. PAST SURGICAL HISTORY: 1. Right wrist nonhealing fracture. 2. Bilateral total hip arthroplasties. 3. Pinky. 4. Hysterectomy. 5. Appendectomy. MEDICATIONS: Please see computer record for full detailed list. ALLERGIES: Codeine. SOCIAL HISTORY: No smoking. No alcohol. Lives alone. REVIEW OF SYSTEMS: Complete review of systems obtained. Review of systems negative for constitution al, HEENT, GI, pulmonary, vascular, , hematology, skin, muscular, endocrine, psych, except for posi tives as per HPI. FAMILY HISTORY: Reviewed, noncontributory to presenting complaint. PHYSICAL EXAMINATION: GENERAL: Well-developed, well-nourished female, in no acute distress. VITAL SIGNS: Temp is 36.9, pulse 134, blood pressure 148/95, saturating 94% on room air. EYES: Normal co njunctivae. Pupils react to light. ENT: Normal ears and nose. Hearing intact. Normal teeth. Oroph arynx moist. NECK: Trachea midline. No thyromegaly. CHEST: Normal respiratory effort. LUNGS: C lear to auscultation bilaterally. CARDIOVASCULAR: Irregularly irregular. No murmur. No extremity edema. ABDOMEN: Soft. Mild right upper quadrant tenderness to palpation without hepatosplenomegaly . No rebound or guarding. SKIN: Warm, dry, intact. No rash. MUSCULOSKELETAL: No cyanosis or clu bbing. Strength 5/5 upper and lower extremities. NEURO: Cranial nerves intact. Normal sensation t o light touch. PSYCH: Alert and oriented x3. Normal affect. Normal judgment. Normal memory. LABORATORY DATA: White count 22.3, hematocrit 52.1, platelets 331. Sodium 141, potassium 4.0, chlor tray 101, bicarb 25, BUN 12, creatinine 0.8, glucose 187. INR is 1.4. Lactate is 2.1. LFTs are nega tive. Troponins negative. Urinalysis negative. EKG viewed by me. My personal interpretation is AFib with a mild rapid rate of 119. No ST-T wave ch anges. Chest x-ray is negative. CT scan of the abdomen and pelvis shows a distended gallbladder with pericholecystic fluid. No ducta l dilatation. This case was discussed with Dr. Eugene Ramos, emergency room provider. He has also consulted [place] who is staying surgery in a couple days. ASSESSMENT/PLAN: 1. Acute cholecystitis with sepsis. Sepsis evidenced by leukocytosis and tachycardia. Continue Lev aquin and Flagyl. Dr. Ramires is following. He plans to proceed with surgery after couple days of antibiotics and once she is completely off Eliquis. 2. Atrial fibrillation. She has paroxysms of tachycardia. This may be due to her infection. Xenia nue her diltiazem and hold Eliquis. 3. Chronic back pain with continuous narcotic dependency. Continue fentanyl patch. 4. Endometrial cancer with recurrence in the vaginal wall, currently in remission. 5. Obstructive sleep apnea. Continue continuous positive airway pressure at night. She has brought her machine in from home. CODE STATUS: Full. ADMISSION STATUS: Will admit to inpatient as plan is for greater than 2 midnights of inpatient thera py. DVT PROPHYLAXIS: Eliquis will be held. If prolonged wait until surgery, could consider subcu Loveno x. /[id number]/MODL
[2017-10-16] MEDS: PROMETHAZINE HCL 25 MG/ML INJ IVP PRN (20:42)
[2017-10-16] MEDS: HYDROmorphONE/DILAUDID 1 MG/ML INJ IVP PRN (21:28)
[2017-10-16] MEDS: fentaNYL 75 MCG PATCH TD SCH (21:36)
[2017-10-16] MEDS: HYDROCODONE/APAP 5/325 TAB PO SCH (21:37)
[2017-10-16] MEDS: CYCLOBENZAPRINE 10 MG TAB PO SCH (21:37)
[2017-10-16] MEDS: cycloSPORINE 0.05% 30 DROPERETTE/BOX EACHEYE SCH (22:43)
[2017-10-17 03:39] LABS: PLATELET COUNT 150 10^3/uL (150-400)
[2017-10-17 03:55] LABS: INR 1.57 (0.83-1.16); PROTIME(PATIENT) 18.9 SEC (12.0-15.0)
[2017-10-17] MEDS: LEVOTHYROXINE 125 MCG TAB PO SCH (05:40)
--- NOTE | 2017-10-17 06:53 | SOAPPROG ---
SOAP Progress Note Assessment/Plan: Assessment: Plan: 10/17/17 06:51 resolving acute cholecystitis on antibiotics. day 1 off of eliquis- would operate on pt sat am- 72 hors off Subjective: less pain Objective: Vital Signs Temp Pulse Resp BP Pulse Ox 36.8 C 80 20 98/57 L 90 L 10/17/17 00:00 10/17/17 00:00 10/16/17 22:44 10/17/17 00:00 10/17/17 00:00 Laboratory Results 10/17/17 03:15 10/17/17 03:15 10/16/17 10/17/17 10/18/17 05:59 05:59 05:59 Intake Total 3970 Balance 3970 PT 18.9 SEC (12.0-15.0) H 10/17/17 03:15 INR 1.57 (0.83-1.16) H 10/17/17 03:15 ICD10 Worksheet Patient Problems: Problems Problem Status Onset Cholecystitis, acute Acute Sepsis Acute Afib Acute Altered mental status Acute Diarrhea Acute Failure to thrive Acute Fever Acute Ribs, multiple fractures Acute Severe sepsis Acute UTI (urinary tract infection) Acute Wrist fracture, right Acute Osteoarthritis of hip Chronic
--- NOTE | 2017-10-17 08:51 | HOSPPROG ---
Hospitalist Progress Note Assessment/Plan: #Acute cholecystitis: much improved on IV abx. Plan for OR on Sat once Eliquis cleared #Permanent atrial fibrillation: rate-controlled on Dilt, holding Eliquis for surgery #Leukocytosis: nearly resolved. Blood cultures NGTD #h/o endometrial cancer with recurrence in vag wall: s/p radiation #Recent right radial fracture: casted, but very painful. Will ask Ortho to evaluate #Chronic pain with opioid dependency: bowel regimen #RIAZ: on CPAP #DVT ppx: SCDs #Diet: clears #Disp: cont inpatient admission for IV abx, choley on 10/19 Subjective: no abd pain, N. Mild diarrhea. Casted wrist is very painful, "banging against inside of cast" Objective: Vital Signs Temp Pulse Resp BP Pulse Ox 37.1 C 83 18 117/61 95 10/17/17 07:35 10/17/17 07:35 10/17/17 07:35 10/17/17 07:35 10/17/17 07:35 Laboratory Results 10/17/17 03:15 10/17/17 03:15 10/16/17 10/17/17 10/18/17 05:59 05:59 05:59 Intake Total 3970 Balance 3970 PT 18.9 SEC (12.0-15.0) H 10/17/17 03:15 INR 1.57 (0.83-1.16) H 10/17/17 03:15 - Time Spent With Patient Time Spent with Patient: greater than 35 minutes Time Spent with Patient: Greater than 35 minutes spent on this patients care, greater than 50% of time spent counseling, educating, and coordinating care regarding the above mentioned plan. - Physical Exam Constitutional: no apparent distress, obese Eyes: PERRL Ears, Nose, Mouth, Throat: moist mucous membranes, hearing normal Cardiovascular: irregularly irregular Respiratory: no respiratory distress Gastrointestinal: normoactive bowel sounds, soft, non-tender abdomen, No tenderness Genitourinary: no bladder fullness Skin: warm Musculoskeletal: full muscle strength Neurologic: AAOx3, CN II-XII Intact Psychiatric: interacting appropriately ICD10 Worksheet Patient Problems: Problems Problem Status Onset Cholecystitis, acute Acute Sepsis Acute Afib Acute Altered mental status Acute Diarrhea Acute Failure to thrive Acute Fever Acute Ribs, multiple fractures Acute Severe sepsis Acute UTI (urinary tract infection) Acute Wrist fracture, right Acute Osteoarthritis of hip Chronic
[2017-10-17] MEDS: cycloSPORINE 0.05% 30 DROPERETTE/BOX EACHEYE SCH ×2 (09:54→20:29)
[2017-10-17] MEDS: DILTIAZEM XR 240 MG CAP PO SCH (09:54)
--- NOTE | 2017-10-17 10:47 | ASMTCMCOM ---
CM Note CM Note Notes: Patient admitted with abd pain, found to have acute cholecystitis with sepsis. She is being treated with IV antibiotics and weaned off Eliquis in anticipation for surgery Thursday 10/19. Patient lives alone and is normally independent. PT/OT have been ordered. CAse Management will follow for discharge planning. Date Signed: 10/17/2017 10:47 AM Electronically Signed By:Gemma Eli RN
--- NOTE | 2017-10-17 12:20 | PDMN ---
Medical Necessity Medical necessity: est los>2mn for acute cholecystitis w/sepsis, leukocytosis and tachycardia; admit for IV abx, d/c Eliquis, then surgery in a couple days; comorbid afib, chronic back paoin w/narcotic dependency, RIAZ, hx endometrial CA in remission; per order and H&P 10/16/17
[2017-10-17] MEDS: ONDANSETRON 4 MG/2 ML VIAL IVP PRN (12:35)
[2017-10-17] MEDS: oxyCODONE IR 5 MG TAB PO PRN (12:35)
[2017-10-17] MEDS: Vortioxetine Hydrobromide [Trintellix] 20 MG PO SCH (12:36)
--- NOTE | 2017-10-17 13:19 | ASMTCMCOM ---
CM Note CM Note Notes: Patient is current with [facility]. CM will send orders upon discharge. Date Signed: 10/17/2017 01:17 PM Electronically Signed By:Gemma Eli RN
[2017-10-17] MEDS: HYDROmorphONE/DILAUDID 1 MG/ML INJ IVP PRN ×2 (15:34→18:27)
[2017-10-17] MEDS: HYDROCODONE/APAP 5/325 TAB PO SCH (20:28)
[2017-10-17] MEDS: TEMAZEPAM 15 MG CAP PO PRN (22:11)
[2017-10-17] MEDS: CYCLOBENZAPRINE 10 MG TAB PO SCH (22:14)
[2017-10-18] MEDS: LEVOTHYROXINE 125 MCG TAB PO SCH (05:09)
[2017-10-18] MEDS: DILTIAZEM XR 240 MG CAP PO SCH (09:16)
[2017-10-18] MEDS: HYDROmorphONE/DILAUDID 1 MG/ML INJ IVP PRN ×3 (09:17→13:44)
[2017-10-18] MEDS: cycloSPORINE 0.05% 30 DROPERETTE/BOX EACHEYE SCH ×2 (09:17→21:08)
--- NOTE | 2017-10-18 11:10 | HOSPPROG ---
Hospitalist Progress Note Assessment/Plan: DIAGNOSES: # Acute cholecystitis: * improved on IV abx, currently Levaquin and Flagyl. * Plan for OR on 10/19 once Eliquis cleared # Permanent atrial fibrillation: * rate-controlled on Dilt but was tachycardic in the 130s upon admission, will continue athletic monitor and PCU status at least until after surgery, and if rate remains stable after that could change to [facility] surg floor if does not go home quickly * holding Eliquis for surgery # acute marked drop in hemoglobin from 17-8, though suspect this may be a delusional spurious result and needs rechecking * Repeat CBC ordered for now # diarrhea with watery nonbloody stools for 5 days, onset 2 days before admission; she did have antibiotics a couple months ago here for other infection so would consider the possibility of C diff versus other infectious etiology * GI pathogen panel ordered # h/o endometrial cancer with recurrence in vag wall: s/p radiation # Recent right radial fracture: casted, but very painful. Will ask Ortho to evaluate # Chronic pain with opioid dependency: bowel regimen # RIAZ: on CPAP, will want to continue that here given her use of pain medicines and upcoming anesthesia # DVT ppx: SCDs, and will resume anticoagulation after surgery # Diet: clears SUBJECTIVE: Still with some abdominal pain, diffuse Appetite poor but able to take in small amounts of clear liquids though this does give her bloating and cramping Now tells me that she has been having up to 2 watery nonbloody stools a day for 5 or 6 days, predating her admission here by a couple of days, and gets cramping with those stools OBJECTIVE Vitals reviewed: Stable overall without fevers at this time Fibrous Wallboard Inspector, my review: Rate controlled AFib Exam: alert oriented, looks tired and uncomfortable skin warm dry color ok resps not labored lungs clear BSs heart irregular abd soft mildly distended, mildly diffusely tender but no rebound, bowel sounds present limbs warm, no edema iv site ok Laboratory data: Marked drop in hemoglobin and platelets on yesterday's sample though looking overall at her CBC the white blood cell count hemoglobin and platelets all dropped by about 50% since the night before, leading me to wonder if this was an erroneous result from some delusional change. The patient does say she thinks the nurses jody the blood sample through her IV tubing which could be a source of delusional fluids. Objective: Vital Signs Temp Pulse Resp BP Pulse Ox 36.8 C 91 19 124/58 H 94 10/18/17 07:44 10/18/17 09:16 10/18/17 07:44 10/18/17 07:44 10/18/17 07:44 Laboratory Results 10/17/17 03:15 10/17/17 03:15 10/17/17 10/18/17 10/19/17 06:59 06:59 06:59 Intake Total 3970 1902 Output Total 2 Balance 3970 1900 PT 18.9 SEC (12.0-15.0) H 10/17/17 03:15 INR 1.57 (0.83-1.16) H 10/17/17 03:15 ICD10 Worksheet Patient Problems: Problems Problem Status Onset Cholecystitis, acute Acute Sepsis Acute Afib Acute Altered mental status Acute Diarrhea Acute Failure to thrive Acute Fever Acute Ribs, multiple fractures Acute Severe sepsis Acute UTI (urinary tract infection) Acute Wrist fracture, right Acute Osteoarthritis of hip Chronic
[2017-10-18] MEDS: PROMETHAZINE HCL 25 MG/ML INJ IVP PRN (12:30)
[2017-10-18] MEDS: Vortioxetine Hydrobromide [Trintellix] 20 MG PO SCH (12:44)
[2017-10-18] MEDS: ONDANSETRON 4 MG/2 ML VIAL IVP PRN (13:44)
--- NOTE | 2017-10-18 15:43 | ASMTCMCOM ---
CM Note CM Note Notes: Patient is going for gallbladder surgery in the morning at 9:00 AM. She is current with [facility]. PT is recommending SNF rehab. Spoke with patient's nurse who states patient will most likely want to do home health care but we can meet with the patient after surgery to check in about SNF recommendation. CM will follow. Date Signed: 10/18/2017 03:42 PM Electronically Signed By:Kristy Coles LCSW
[2017-10-18 15:44] LABS: PLATELET COUNT 286 10^3/uL (150-400)
[2017-10-18] MEDS: oxyCODONE IR 5 MG TAB PO PRN (15:52)
[2017-10-18] MEDS: fentaNYL 75 MCG PATCH TD SCH (18:17)
[2017-10-18] MEDS: CYCLOBENZAPRINE 10 MG TAB PO SCH (21:07)
[2017-10-18] MEDS: HYDROCODONE/APAP 5/325 TAB PO SCH (21:08)
[2017-10-18] MEDS: TEMAZEPAM 15 MG CAP PO PRN (23:50)
[2017-10-19] MEDS: oxyCODONE IR 5 MG TAB PO PRN ×2 (02:32→23:35)
[2017-10-19 05:49] LABS: PLATELET COUNT 324 10^3/uL (150-400)
[2017-10-19] MEDS: LEVOTHYROXINE 125 MCG TAB PO SCH (06:19)
[2017-10-19] MEDS: DILTIAZEM XR 240 MG CAP PO SCH (07:54)
[2017-10-19] MEDS ORDERED: PROPOFOL 200 MG/20 ML VIAL ONE (07:57)
[2017-10-19] MEDS ORDERED: fentaNYL 100 MCG/2 ML INJ ONE ×2 (07:57→11:00)
[2017-10-19] MEDS: cycloSPORINE 0.05% 30 DROPERETTE/BOX EACHEYE SCH ×2 (07:57→22:11)
[2017-10-19] MEDS ORDERED: DEXAMETHASONE 4 MG/ML VIAL ONE (07:58)
[2017-10-19] MEDS ORDERED: ROCURONIUM 50 MG/5 ML VIAL ONE (07:58)
[2017-10-19] MEDS ORDERED: ONDANSETRON 4 MG/2 ML VIAL ONE ×2 (07:58→11:00)
[2017-10-19] MEDS ORDERED: KETOROLAC 30 MG/1 ML SDV ONE (07:58)
[2017-10-19] MEDS ORDERED: LIDOCAINE 2% 5 ML SDV ONE (07:58)
[2017-10-19] MEDS ORDERED: BUPIVACAINE 0.5% 30 ML SDV ONE (07:59)
[2017-10-19] MEDS ORDERED: EPINEPHrine 1 MG/ML INJ ONE (07:59)
[2017-10-19] MEDS ORDERED: MIDAZOLAM 2 MG/2 ML VIAL IVP ONE (08:25)
--- NOTE | 2017-10-19 08:25 | PDANEPAE ---
ANE History of Present Illness lap asia ANE Past Medical History - Cardiovascular History Hx Hypertension: Yes Hx Arrhythmias: Yes Hx Chest Pain: No Hx Coronary Artery / Peripheral Vascular Disease: No Hx CHF / Valvular Disease: No Hx Palpitations: No Cardiovascular History Comment: CARDIOVERSION X2 FOR A-FIB LAST 2015 - Pulmonary History Hx COPD: No Hx Asthma/Reactive Airway Disease: No Hx Recent Upper Respiratory Infection: No Hx Oxygen in Use at Home: Yes O2 in Use at Home (L/minute): 2 Hx Sleep Apnea: Yes Sleep Apnea Screening Result - Last Documented: Positive Pulmonary History Comment: INSTRUCTED TO BRING PORTABLE OXYGEN - Neurologic History Hx Cerebrovascular Accident: No Hx Seizures: No Hx Dementia: No - Endocrine History Hx Diabetes: Yes Endocrine History Comment: CARL - Renal History Hx Renal Disorders: Yes Renal History Comment: UA INCONT - Liver History Hx Hepatic Disorders: No - Neurological & Psychiatric Hx Hx Neurological and Psychiatric Disorders: Yes Neurological / Psychiatric History Comment: CLOSED HEAD INJURY 09/2016 RESIDUAL ISSUES WITH SLEEP. ANXIETY AND DEPRESSION - Cancer History Hx Cancer: Yes Cancer History Comment: VULVA. ENDOMETRIAL - Congenital Disorder History Hx Congenital Disorders: No - GI History Hx Gastrointestinal Disorders: Yes Gastrointestinal History Comment: PREV KIERA FUNDOPLICATION. PREV COLONOSCOPY WTIH POLYPS REMVL - Other Health History Other Health History: DDD. RESTLESS LEG SYNDROME. DRY EYES - Chronic Pain History Chronic Pain: Yes (LOWER BACK,LT LEG) - Surgical History Prior Surgeries: LESLIE TOTAL HIP. HYSTERECTOMY. RT RTC REPAIR. KIERA FUNDOPLICATION. TONSILLECTOMY ANE Review of Systems Review of Systems: - Exercise capacity Exercise capacity: >=4 METS ANE Patient History - Allergies Allergies/Adverse Reactions: codeine [Codeine] Allergy (Mild, Verified 10/16/17 12:29) Vomiting - Home Medications Home Medications: Oxymorphone HCl 5 mg PO BID PRN 07/18/17 [Last Taken 08/14/17 03:00] Calcium Carbonate [Oyster Shell Calcium 500 mg (*)] 500 mg PO DAILY 08/14/17 [ Last Taken Unknown] Cholecalciferol Vit D3 [Vitamin D3 (*)] 1,000 units PO DAILY 08/14/17 [Last Taken Unknown] Cyclobenzaprine [Flexeril 10 MG (*)] 20 mg PO HS 08/14/17 [Last Taken 08/13/17] Diltiazem HCl [Cartia XT 240mg] 240 mg PO DAILY 08/14/17 [Last Taken 10/16/17] Levothyroxine [Synthroid 125 mcg (*)] 125 mcg PO DAILY06 08/14/17 [Last Taken ] Temazepam [Restoril 15 MG (*)] 15 mg PO HSPRN PRN 08/14/17 [Last Taken 08/13/17] Vortioxetine Hydrobromide [Trintellix] 20 mg PO DAILY@1200 08/14/17 [Last Taken 10/16/17] cycloSPORINE 0.05% [Restasis Opht Drops(*)] 1 drop EACHEYE BID 08/14/17 [Last Taken 10/16/17] fentaNYL [Duragesic 75 MCG Patch (*)] 75 mcg TD Q48H 08/14/17 [Last Taken ] rOPINIRole HCL [Requip 2mg (*)] 2 mg PO HS 08/14/17 [Last Taken 08/13/17] Hydrocodone/APAP 5/325 [Offerle 5/325 (*)] 2 tab PO HS 10/16/17 [Last Taken Unknown] - NPO status NPO Status: no food or drink >8 hours NPO Since - Liquids (Date): 10/19/17 NPO Since - Liquids (Time): 00:00 NPO Since - Solids (Date): 10/19/17 NPO Since - Solids (Time): 00:00 - Smoking Hx Smoking Status: Never smoked - Alcohol Use Alcohol Use: Sober ANE Labs/Vital Signs - Labs Result Diagrams: 10/19/17 05:30 10/17/17 03:15 - Vital Signs Blood Pressure: 138/81 Heart Rate: 90 Respiratory Rate: 18 O2 Sat (%): 97 Height: 175.26 cm Weight: 99.79 kg ANE Physical Exam - Airway Mallampati Score: Class 2 Mouth exam: normal dental/mouth exam - Pulmonary Pulmonary: no respiratory distress - Cardiovascular Cardiovascular: irregularly irregular - ASA Status ASA Status: III ANE Anesthesia Plan Anesthesia Plan: general endotracheal anesthesia
[2017-10-19] MEDS ORDERED: SUCCINYLCHOLINE CHLORIDE 200 MG/10 ML SYR IVP ONE (08:40)
[2017-10-19] MEDS ORDERED: PHENYLEPHRINE HCL 100 MCG/ML SYR ONE (08:45)
[2017-10-19] MEDS ORDERED: SUGAMMADEX SODIUM 200 MG/2 ML VIAL IVP ONE (09:39)
[2017-10-19] MEDS ORDERED: HYDROmorphONE/DILAUDID 2 MG/ML INJ IVP PRN ×2 (10:15)
[2017-10-19] MEDS ORDERED: ONDANSETRON 4 MG/2 ML VIAL IVP PRN (10:15)
[2017-10-19] MEDS ORDERED: ALBUTEROL 3 ML DEYVIAL IH PRN (10:15)
[2017-10-19] MEDS ORDERED: PHENYLEPHRINE HCL 100 MCG/ML SYR IVP PRN (10:15)
[2017-10-19] MEDS ORDERED: NALOXONE HCL 0.4 MG/ML INJ IVP PRN (10:15)
--- NOTE | 2017-10-19 10:17 | POSTOPPROG ---
Post Op Note Date of Operation: 10/19/17 Surgeon: Tulio Ramires Van Loader: paola britt Pre-op Diagnosis: acute cholecystitis Post-op Diagnosis: same Indication: same Procedure: lap choly Findings: same Inf/Abcess present in the surg proc area at time of surgery?: No EBL: Minimal
[2017-10-19] MEDS ORDERED: HYDROmorphONE/DILAUDID 1 MG/ML INJ ONE (10:26)
[2017-10-19] MEDS: HYDROmorphONE/DILAUDID 1 MG/ML INJ IVP PRN ×6 (10:28→22:06)
--- NOTE | 2017-10-19 10:42 | GOP ---
[f rep st] OPERATIVE REPORT DATE OF OPERATION: SURGEON: Tulio Ramires MD RIP SAW OPERATOR: Gerry Umana. ANESTHESIA: General anesthetic. PREOPERATIVE DIAGNOSIS: Acute cholecystitis, cholelithiasis. POSTOPERATIVE DIAGNOSIS: Acute cholecystitis, cholelithiasis. PROCEDURE PERFORMED: Laparoscopic cholecystectomy. FINDINGS: INDICATIONS: Patient presents with 3 days of abdominal pain, leukocytosis, initially fever, found to have acute cholecystitis. Because she was on Eliquis, surgery was delayed 3 days. She was treated with IV antibiotics, which caused resolution of her leukocytosis and diminution of her pain. DESCRIPTION OF PROCEDURE: The abdomen which was morbidly obese was scrubbed with ChloraPrep, draped in the usual sterile fashion. Infraumbilical incision made. Veress needle used to achieve a pneumop eritoneum. A 12 mm port was placed. Three 5 mm ports in the upper abdomen. The gallbladder was so distended it could not be grasped. It was thick walled as well. It was aspirated with an 18-gauge s magdalena needle and over 100 mL of bile aspirated. This allowed the gallbladder to be displaced cephala d and the Ofelia pouch area identified. The anatomy was a little unusual in that the common duct w as quite enlarged and bulbous and adherent to the liver side of the Ofelia pouch area. Careful dis section opened up a plane between the common duct and the actual gallbladder and then again meticulou s dissection revealed 2 cystic artery branches which were clipped and divided followed by the cystic duct. Once there was wide open cystic plate, the cystic duct was taken with clips and the gallbladde r peeled out from below upward. As mentioned, the common duct below the cystic common junction was u nusually bulbous. The gallbladder was removed from the liver bed. Minor bleeding was treated with s ome Zuleyka powder. The gallbladder was placed in a pouch which it almost overflowed and then eventua lly brought out by lengthening the fascial defect at the umbilicus to accommodate the thickened gallb ladder and multiple large stones. Once the gallbladder was removed, the fascial defect at the umbili cus was closed with several interrupted 0 Vicryl [id number] sutures, followed by closing all ski n incisions with 4-0 Vicryl and Dermabond. The patient tolerated the procedure well. /[id number]/MODL
[2017-10-19] MEDS: fentaNYL 100 MCG/2 ML INJ IVP PRN ×3 (11:17→11:55)
[2017-10-19] MEDS ORDERED: PROMETHAZINE HCL 25 MG/ML INJ ONE (11:33)
[2017-10-19] MEDS ORDERED: PROMETHAZINE HCL 25 MG/ML INJ IV ONE (11:45)
[2017-10-19] MEDS: Vortioxetine Hydrobromide [Trintellix] 20 MG PO SCH (15:42)
--- NOTE | 2017-10-19 17:45 | HOSPPROG ---
Hospitalist Progress Note Assessment/Plan: Seen postoperatively today back in her hospital room DIAGNOSES: # Acute cholecystitis now status post cholecystectomy; the gallbladder was distended thickened and containing multiple stones at the time surgery * improved after surgery on IV abx, currently Levaquin and Flagyl. * Can resume Eliquis tomorrow * I did review Dr. Norris what's operating notes which mentioned a bulbous distention of the distal common duct beyond the cystic duct junction. On reviewing her CT scan and previous ultrasound there is no evidence that she had had ductal dilation at that time. Without significant enzyme her bilirubin elevations I doubt there would be a distal ductal stone but will watch her symptoms closely and recheck labs in the morning # Permanent atrial fibrillation: * rate-controlled on Dilt but was tachycardic in the 130s upon admission, will continue satellite project site monitor and PCU status at least until after surgery, and if rate remains stable after that could change to [facility] surg floor if does not go home quickly * Resume Eliquis tomorrow morning # diarrhea with watery nonbloody stools for 5 days, onset 2 days before admission; * GI pathogen panel has come back negative # h/o endometrial cancer with recurrence in vag wall: s/p radiation # Recent right radial fracture: casted, but very painful. Will ask Ortho to evaluate # Chronic pain with opioid dependency: bowel regimen # RIAZ: on CPAP, will want to continue that here given her use of pain medicines and upcoming anesthesia # DVT ppx: SCDs, and will resume anticoagulation after surgery # Diet: As tolerated per Dr. Norris bleeds orders SUBJECTIVE: She is now status post successful laparoscopic cholecystectomy with no signs of bleeding or other complications Overall pain is decreased No nausea, starting to get a bit hungry No shortness of breath or fever symptoms OBJECTIVE Vitals reviewed: Stable overall without fevers at this time Piping Drafter, my review: Rate controlled AFib Exam: alert oriented, looks more relaxed today skin warm dry color ok no jaundice resps not labored lungs clear BSs heart irregular abd no problem with incision sites, mildly distended, bowel sounds present, less tender limbs warm, no edema iv site ok Laboratory data: Yesterday's repeat the blood counts show that there was actually a dilutional error and she does not have a significant hemoglobin drop Objective: Vital Signs Temp Pulse Resp BP Pulse Ox 36.7 C 108 H 16 117/88 H 85 L 10/19/17 15:49 10/19/17 15:49 10/19/17 15:49 10/19/17 15:49 10/19/17 15:49 Microbiology 10/18/17 20:15 Gastrointestinal Tract Panel (PCR) - Final Stool No Organism Detected Laboratory Results 10/19/17 05:30 10/17/17 03:15 10/18/17 10/19/17 10/20/17 06:59 06:59 06:59 Intake Total 1901 1989 100 Output Total 2 50 550 Balance 1900 1940 -450 PT 18.9 SEC (12.0-15.0) H 10/17/17 03:15 INR 1.57 (0.83-1.16) H 10/17/17 03:15 ICD10 Worksheet Patient Problems: Problems Problem Status Onset Cholecystitis, acute Acute Sepsis Acute Afib Acute Altered mental status Acute Diarrhea Acute Failure to thrive Acute Fever Acute Ribs, multiple fractures Acute Severe sepsis Acute UTI (urinary tract infection) Acute Wrist fracture, right Acute Osteoarthritis of hip Chronic
[2017-10-19] MEDS: HYDROCODONE/APAP 5/325 TAB PO SCH (20:21)
[2017-10-19] MEDS: CYCLOBENZAPRINE 10 MG TAB PO SCH (22:11)
[2017-10-19] MEDS: PROMETHAZINE HCL 25 MG/ML INJ IVP PRN (23:35)
[2017-10-20] MEDS: HYDROmorphONE/DILAUDID 1 MG/ML INJ IVP PRN (00:55)
[2017-10-20 04:55] LABS: PLATELET COUNT 327 10^3/uL (150-400)
[2017-10-20] MEDS: LEVOTHYROXINE 125 MCG TAB PO SCH (05:09)
[2017-10-20] MEDS: oxyCODONE IR 5 MG TAB PO PRN ×4 (05:25→23:11)
[2017-10-20] MEDS: DILTIAZEM XR 240 MG CAP PO SCH (09:51)
[2017-10-20] MEDS: APIXABAN 5 MG TAB PO SCH ×2 (09:51→22:09)
[2017-10-20] MEDS: cycloSPORINE 0.05% 30 DROPERETTE/BOX EACHEYE SCH ×2 (10:09→22:10)
[2017-10-20] MEDS: Vortioxetine Hydrobromide [Trintellix] 20 MG PO SCH (13:29)
--- NOTE | 2017-10-20 14:57 | SOAPPROG ---
SOAP Progress Note Assessment/Plan: Assessment: Plan: 10/17/17 06:51 resolving acute cholecystitis on antibiotics. day 1 off of eliquis- would operate on pt sat am- 72 hors off Subjective: vss, af wbc up to 20 k abd soft, feels beter, cont iv flagy and levo. would be nice to see her wbc come a bit down prior to discharge. Objective: Vital Signs Temp Pulse Resp BP Pulse Ox 36.9 C 100 18 130/65 H 93 10/20/17 11:17 10/20/17 11:17 10/20/17 11:17 10/20/17 11:17 10/20/17 11:17 Laboratory Results 10/20/17 03:40 10/20/17 03:40 10/19/17 10/20/17 10/21/17 05:59 05:59 05:59 Intake Total 1989 1500 Output Total 50 550 Balance 1940 950 PT 18.9 SEC (12.0-15.0) H 10/17/17 03:15 INR 1.57 (0.83-1.16) H 10/17/17 03:15 ICD10 Worksheet Patient Problems: Problems Problem Status Onset Cholecystitis, acute Acute Sepsis Acute Afib Acute Altered mental status Acute Diarrhea Acute Failure to thrive Acute Fever Acute Ribs, multiple fractures Acute Severe sepsis Acute UTI (urinary tract infection) Acute Wrist fracture, right Acute Osteoarthritis of hip Chronic
--- NOTE | 2017-10-20 15:16 | HOSPPROG ---
Hospitalist Progress Note Assessment/Plan: DIAGNOSES: # Acute cholecystitis now status post cholecystectomy; the gallbladder was distended thickened and containing multiple stones at the time surgery * improved after surgery on IV abx, currently Levaquin and Flagyl. * Can resume Eliquis at this time * Encourage increase activity and p.o. Intake as she is able * Await Dr. Ramires assessment # Permanent atrial fibrillation: * rate-controlled on Dilt but was tachycardic in the 130s upon admission, will continue security monitor and PCU status at least until after surgery, and if rate remains stable after that could change to [facility] surg floor if does not go home quickly * Resume Eliquis tomorrow morning # diarrhea with watery nonbloody stools for 5 days, onset 3 days before admission; * Appears to have resolved spontaneously, GI pathogen panel has come back negative # h/o endometrial cancer with recurrence in vag wall: s/p radiation # Recent right radial fracture in cast # Chronic pain with opioid dependency: bowel regimen # RIAZ: on CPAP at home # DVT ppx: SCDs, and will resume anticoagulation after surgery # Diet: As tolerated per Dr. Almendarez orders SUBJECTIVE: Says she only slept better on our last night and feels cranky related to that Some lower abdominal discomfort Has eaten a small bit of broth and small bit of cream of wheat so far Is very upset about staff asking her to get up to walk, sit in chair, etc, wants to sleep OBJECTIVE Vitals reviewed: Some mild tachycardia intermittently related to her AFib, otherwise normal without fever Supervisor Vendor Quality, my review: Rate controlled AFib Exam: alert oriented skin warm dry color ok no jaundice resps not labored lungs clear BSs heart irregular abd no problem with incision sites, mildly distended, bowel sounds present, soft nontender limbs warm, no edema iv site ok Laboratory data: Stable hemoglobin, white cell count up a bit, liver enzymes bilirubin and other chemistries normal Objective: Vital Signs Temp Pulse Resp BP Pulse Ox 36.9 C 100 18 130/65 H 93 10/20/17 11:17 10/20/17 11:17 10/20/17 11:17 10/20/17 11:17 10/20/17 11:17 Laboratory Results 10/20/17 03:40 10/20/17 03:40 0510/20/17 10/21/17 06:59 06:59 06:59 Intake Total 1989 1500 Output Total 50 550 Balance 1940 950 PT 18.9 SEC (12.0-15.0) H 10/17/17 03:15 INR 1.57 (0.83-1.16) H 10/17/17 03:15 ICD10 Worksheet Patient Problems: Problems Problem Status Onset Cholecystitis, acute Acute Sepsis Acute Afib Acute Altered mental status Acute Diarrhea Acute Failure to thrive Acute Fever Acute Ribs, multiple fractures Acute Severe sepsis Acute UTI (urinary tract infection) Acute Wrist fracture, right Acute Osteoarthritis of hip Chronic
[2017-10-20] MEDS: fentaNYL 75 MCG PATCH TD SCH (20:03)
[2017-10-20] MEDS: HYDROCODONE/APAP 5/325 TAB PO SCH (20:17)
[2017-10-20] MEDS: CYCLOBENZAPRINE 10 MG TAB PO SCH (22:08)
[2017-10-21] MEDS: oxyCODONE IR 5 MG TAB PO PRN ×3 (02:49→14:53)
[2017-10-21] MEDS: LEVOTHYROXINE 125 MCG TAB PO SCH (05:05)
[2017-10-21] MEDS: APIXABAN 5 MG TAB PO SCH ×2 (08:29→21:38)
[2017-10-21] MEDS: DILTIAZEM XR 240 MG CAP PO SCH (08:29)
[2017-10-21] MEDS: cycloSPORINE 0.05% 30 DROPERETTE/BOX EACHEYE SCH ×2 (08:30→21:41)
[2017-10-21 11:39] LABS: PLATELET COUNT 302 10^3/uL (150-400)
[2017-10-21] MEDS: Vortioxetine Hydrobromide [Trintellix] 20 MG PO SCH (13:58)
--- NOTE | 2017-10-21 14:48 | SOAPPROG ---
SOAP Progress Note Assessment/Plan: Assessment: ok to dc home in am. would send home on augmentin 875 bid for 5 days, or other similar regimen.. follow up with me in 1 week. thanks Subjective: no acute issues, feelin better Objective: Vital Signs Temp Pulse Resp BP Pulse Ox 36.7 C 104 H 16 114/59 L 92 10/21/17 11:40 10/21/17 12:10 10/21/17 11:40 10/21/17 11:40 10/21/17 12:10 Laboratory Results 10/21/17 11:30 10/20/17 03:40 10/20/17 10/21/17 10/22/17 05:59 05:59 05:59 Intake Total 1500 1440 Output Total 550 Balance 950 1440 PT 18.9 SEC (12.0-15.0) H 10/17/17 03:15 INR 1.57 (0.83-1.16) H 10/17/17 03:15 abdomen soft, no guarding ICD10 Worksheet Patient Problems: Problems Problem Status Onset Cholecystitis, acute Acute Sepsis Acute Afib Acute Altered mental status Acute Diarrhea Acute Failure to thrive Acute Fever Acute Ribs, multiple fractures Acute Severe sepsis Acute UTI (urinary tract infection) Acute Wrist fracture, right Acute Osteoarthritis of hip Chronic
--- NOTE | 2017-10-21 16:37 | HOSPPROG ---
Hospitalist Progress Note Assessment/Plan: * Acute cholecystitis s/p lap asia -okay to change to PO abx - Augmentin 875mg x [address] Grissom * Sepsis (POA) * Afib -back on Eliquis and PO diltiazem * Chronic back pain with continuous narcotic dependency -fentanyl patch * Endometrial cancer with recurrence in vaginal wall -s/p XRT - now in remission * RIAZ - CPAP * Obesity BMI 32 -slow to mobilize - PT/OT - may need SNF * Right radial fracture - cast Subjective: Upset stomach when she eats Objective: Vital Signs Temp Pulse Resp BP Pulse Ox 36.6 C 72 16 124/65 H 95 10/21/17 15:00 10/21/17 15:00 10/21/17 15:00 10/21/17 15:00 10/21/17 15:00 Laboratory Results 10/21/17 11:30 10/20/17 03:40 10/20/17 10/21/17 10/22/17 05:59 05:59 05:59 Intake Total 1500 1440 480 Output Total 550 Balance 950 1440 480 PT 18.9 SEC (12.0-15.0) H 10/17/17 03:15 INR 1.57 (0.83-1.16) H 10/17/17 03:15 - Physical Exam Constitutional: no apparent distress, appears nourished, not in pain Cardiovascular: regular rate and rhythym, no murmur, rub, or gallop Respiratory: no respiratory distress, no rales or rhonchi, clear to auscultation Gastrointestinal: normoactive bowel sounds, soft, non-tender abdomen, no palpable masses Skin: no rashes or abrasions, no fluctuance, no induration Neurologic: AAOx3, sensation intact bilaterally Psychiatric: interacting appropriately, not anxious, not encephalopathic, thought process linear ICD10 Worksheet Patient Problems: Problems Problem Status Onset Cholecystitis, acute Acute Sepsis Acute Afib Acute Altered mental status Acute Diarrhea Acute Failure to thrive Acute Fever Acute Ribs, multiple fractures Acute Severe sepsis Acute UTI (urinary tract infection) Acute Wrist fracture, right Acute Osteoarthritis of hip Chronic
--- NOTE | 2017-10-21 17:16 | ASMTCMCOM ---
CM Note CM Note Notes: Spoke with MD; anticipate dc tomorrow. Met with pt to discuss SNF vs HHC. Pt does not want to go to SNF; prefers to go home with [facility] & [facility]. Updates faxed to [facility]. Jas onsite to visit pt. Pt to contact [facility]. Pt states she will have a ride tomorrow. CM will follow. Date Signed: 10/21/2017 05:15 PM Electronically Signed By:Kelley Barrientos RN
[2017-10-21] MEDS ORDERED: BISACODYL 10 MG SUPP PR PRN (20:30)
[2017-10-21] MEDS ORDERED: MAGNESIUM HYDROXIDE 30 ML UDCUP PO PRN (20:30)
[2017-10-21] MEDS ORDERED: POLYETHYLENE GLYCOL 3350 17 GM PKT PO PRN (20:30)
[2017-10-21] MEDS ORDERED: LACTULOSE 20 GM/30 ML UDCUP PO PRN (20:30)
[2017-10-21] MEDS: AMOXICILLIN/CLAVULANATE POT 875/125 MG TAB PO SCH (21:38)
[2017-10-21] MEDS: HYDROCODONE/APAP 5/325 TAB PO SCH (21:38)
[2017-10-21] MEDS: SENNOSIDES/DOCUSATE SODIUM TAB PO SCH (21:38)
[2017-10-21] MEDS: CYCLOBENZAPRINE 10 MG TAB PO SCH (21:39)
[2017-10-22] MEDS: oxyCODONE IR 5 MG TAB PO PRN ×3 (03:41→16:16)
[2017-10-22] MEDS: LEVOTHYROXINE 125 MCG TAB PO SCH (03:41)
[2017-10-22 04:20] LABS: PLATELET COUNT 325 10^3/uL (150-400)
[2017-10-22] MEDS: PROMETHAZINE HCL 25 MG/ML INJ IVP PRN (05:36)
[2017-10-22] MEDS ORDERED: fentaNYL 75 MCG PATCH TD ONE (08:07)
[2017-10-22] MEDS: APIXABAN 5 MG TAB PO SCH ×2 (08:09→21:45)
[2017-10-22] MEDS: DILTIAZEM XR 240 MG CAP PO SCH (08:10)
[2017-10-22] MEDS: ONDANSETRON 4 MG/2 ML VIAL IVP PRN (08:16)
[2017-10-22] MEDS: CYCLOBENZAPRINE 10 MG TAB PO SCH ×2 (11:01→21:45)
[2017-10-22] MEDS: PANTOPRAZOLE SODIUM 40 MG TAB PO SCH (11:01)
[2017-10-22] MEDS: CYCLOBENZAPRINE 10 MG TAB PO PRN (11:05)
[2017-10-22] MEDS: SENNOSIDES/DOCUSATE SODIUM TAB PO SCH ×3 (11:09→21:44)
[2017-10-22] MEDS: cycloSPORINE 0.05% 30 DROPERETTE/BOX EACHEYE SCH ×2 (11:09→21:47)
[2017-10-22] MEDS: AMOXICILLIN/CLAVULANATE POT 875/125 MG TAB PO SCH ×2 (13:01→21:45)
[2017-10-22] MEDS: Vortioxetine Hydrobromide [Trintellix] 20 MG PO SCH (16:05)
--- NOTE | 2017-10-22 19:21 | HOSPPROG ---
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 -s/p XRT - now in remission * RIAZ - CPAP * Obesity BMI 32 -slow to mobilize - PT/OT - may need SNF * Right radial fracture - cast Subjective: Feels terrible, N/V - not tolerating anything PO, no BM Objective: Vital Signs Temp Pulse Resp BP Pulse Ox 36.7 C 77 18 129/67 H 95 10/22/17 15:52 10/22/17 15:52 10/22/17 15:52 10/22/17 15:52 10/22/17 15:52 Laboratory Results 10/22/17 03:42 10/20/17 03:40 10/21/17 10/22/17 10/23/17 05:59 05:59 05:59 Intake Total 1440 680 800 Output Total 3 Balance 1440 680 797 PT 18.9 SEC (12.0-15.0) H 10/17/17 03:15 INR 1.57 (0.83-1.16) H 10/17/17 03:15 AXR personally viewed - my interpretation is - constipation - no obstruction tele reviewed - rate controlled afib - Physical Exam Constitutional: no apparent distress, appears nourished, not in pain Cardiovascular: regular rate and rhythym, no murmur, rub, or gallop Respiratory: no respiratory distress, no rales or rhonchi, clear to auscultation Gastrointestinal: normoactive bowel sounds, soft, non-tender abdomen, no palpable masses Skin: no rashes or abrasions, no fluctuance, no induration Neurologic: AAOx3, sensation intact bilaterally Psychiatric: interacting appropriately, not anxious, not encephalopathic, thought process linear ICD10 Worksheet Patient Problems: Problems Problem Status Onset Cholecystitis, acute Acute Sepsis Acute Afib Acute Altered mental status Acute Diarrhea Acute Failure to thrive Acute Fever Acute Ribs, multiple fractures Acute Severe sepsis Acute UTI (urinary tract infection) Acute Wrist fracture, right Acute Osteoarthritis of hip Chronic
[2017-10-22] MEDS: HYDROCODONE/APAP 5/325 TAB PO SCH (21:45)
[2017-10-23] MEDS: oxyCODONE IR 5 MG TAB PO PRN ×2 (02:28→08:00)
[2017-10-23] MEDS: CYCLOBENZAPRINE 10 MG TAB PO PRN (03:40)
[2017-10-23 04:20] LABS: PLATELET COUNT 358 10^3/uL (150-400)
[2017-10-23] MEDS: PANTOPRAZOLE SODIUM 40 MG TAB PO SCH ×2 (06:10→08:00)
[2017-10-23] MEDS: LEVOTHYROXINE 125 MCG TAB PO SCH (06:10)
[2017-10-23] MEDS: DILTIAZEM XR 240 MG CAP PO SCH (08:00)
[2017-10-23] MEDS: AMOXICILLIN/CLAVULANATE POT 875/125 MG TAB PO SCH ×2 (08:00→20:45)
[2017-10-23] MEDS: APIXABAN 5 MG TAB PO SCH ×2 (08:01→20:44)
[2017-10-23] MEDS: cycloSPORINE 0.05% 30 DROPERETTE/BOX EACHEYE SCH ×2 (08:04→22:52)
--- NOTE | 2017-10-23 09:57 | PDANEPAE ---
ANE History of Present Illness 72 yo female with new onset abd pain s/p asia with unresolved pain for EGD. ANE Past Medical History - Cardiovascular History Hx Hypertension: No Hx Arrhythmias: Yes Hx Chest Pain: No Hx Coronary Artery / Peripheral Vascular Disease: No Hx CHF / Valvular Disease: No Hx Palpitations: No Cardiovascular History Comment: CARDIOVERSION X2 FOR A-FIB LAST 2015. chronic A -Fib on Eliquis - Pulmonary History Hx COPD: No Hx Asthma/Reactive Airway Disease: No Hx Recent Upper Respiratory Infection: No Hx Oxygen in Use at Home: Yes O2 in Use at Home (L/minute): 2 Hx Sleep Apnea: Yes Sleep Apnea Screening Result - Last Documented: Positive Pulmonary History Comment: INSTRUCTED TO BRING PORTABLE OXYGEN. Pt uses CPAP nightly for RIAZ - Neurologic History Hx Cerebrovascular Accident: No Hx Seizures: No Hx Dementia: No - Endocrine History Hx Diabetes: No Hypothyroid: Yes Hyperthyroid: No Obesity: mild Endocrine History Comment: CARL - Renal History Hx Renal Disorders: Yes Renal History Comment: UA INCONT - Liver History Hx Hepatic Disorders: No - Neurological & Psychiatric Hx Hx Neurological and Psychiatric Disorders: Yes Neurological / Psychiatric History Comment: CLOSED HEAD INJURY 09/2016 RESIDUAL ISSUES WITH SLEEP. ANXIETY AND DEPRESSION - Cancer History Hx Cancer: Yes Cancer History Comment: VULVA. ENDOMETRIAL - Congenital Disorder History Hx Congenital Disorders: No - GI History GERD: moderate Hx Gastrointestinal Disorders: Yes Gastrointestinal History Comment: PREV KIERA FUNDOPLICATION. PREV COLONOSCOPY WTIH POLYPS REMVL - Other Health History Other Health History: DDD. RESTLESS LEG SYNDROME. DRY EYES - Chronic Pain History Chronic Pain: Yes (LOWER BACK,LT LEG, on chronic high dose narcotics) - Surgical History Prior Surgeries: LESLIE TOTAL HIP. HYSTERECTOMY. RT RTC REPAIR. KIERA FUNDOPLICATION. TONSILLECTOMY ANE Review of Systems Review of Systems: - Systems Constitutional: Reports: weakness (general feeling of weakness, relates it to not eating a lot lately) Cardiac: Reports: no symptoms Respiratory: Reports: no symptoms Gastrointestinal: Reports: abdominal pain, nausea ANE Patient History - Allergies Allergies/Adverse Reactions: codeine [Codeine] Allergy (Mild, Verified 10/16/17 12:29) Vomiting - Home Medications Home Medications: Oxymorphone HCl 5 mg PO BID PRN 07/18/17 [Last Taken 08/14/17 03:00] Calcium Carbonate [Oyster Shell Calcium 500 mg (*)] 500 mg PO DAILY 08/14/17 [ Last Taken Unknown] Cholecalciferol Vit D3 [Vitamin D3 (*)] 1,000 units PO DAILY 08/14/17 [Last Taken Unknown] Cyclobenzaprine [Flexeril 10 MG (*)] 20 mg PO HS 08/14/17 [Last Taken 08/13/17] Diltiazem HCl [Cartia XT 240mg] 240 mg PO DAILY 08/14/17 [Last Taken 10/16/17] Levothyroxine [Synthroid 125 mcg (*)] 125 mcg PO DAILY06 08/14/17 [Last Taken ] Temazepam [Restoril 15 MG (*)] 15 mg PO HSPRN PRN 08/14/17 [Last Taken 08/13/17] Vortioxetine Hydrobromide [Trintellix] 20 mg PO DAILY@1200 08/14/17 [Last Taken 10/16/17] cycloSPORINE 0.05% [Restasis Opht Drops(*)] 1 drop EACHEYE BID 08/14/17 [Last Taken 10/16/17] fentaNYL [Duragesic 75 MCG Patch (*)] 75 mcg TD Q48H 08/14/17 [Last Taken ] rOPINIRole HCL [Requip 2mg (*)] 2 mg PO HS 08/14/17 [Last Taken 08/13/17] Hydrocodone/APAP 5/325 [[place] 5/325 (*)] 2 tab PO HS 10/16/17 [Last Taken Unknown] - NPO status NPO Since - Liquids (Date): 10/19/17 NPO Since - Liquids (Time): 00:00 NPO Since - Solids (Date): 10/19/17 NPO Since - Solids (Time): 00:00 - Anes Hx Anes Hx: post operative nausea and vomiting - Smoking Hx Smoking Status: Never smoked Marijuana use: No - Alcohol Use Alcohol Use: Sober - Family Anes Hx Family Anes Hx: neg - N/A ANE Labs/Vital Signs - Labs Result Diagrams: 10/23/17 04:03 10/20/17 03:40 - Vital Signs Blood Pressure: 144/91 Heart Rate: 105 Respiratory Rate: 16 O2 Sat (%): 83 Height: 175.26 cm Weight: 99.79 kg ANE Physical Exam - Airway Neck exam: FROM Mallampati Score: Class 3 (short TMD) - Pulmonary Pulmonary: clear to auscultation - Cardiovascular Cardiovascular: irregularly irregular - ASA Status ASA Status: III ANE Anesthesia Plan Anesthesia Plan: GA with mask
[2017-10-23] MEDS ORDERED: LR 1,000 ML IV ONE (10:04)
[2017-10-23] MEDS ORDERED: fentaNYL 100 MCG/2 ML INJ ONE (10:21)
[2017-10-23] MEDS ORDERED: LIDOCAINE 2% 5 ML SDV ONE (10:21)
[2017-10-23] MEDS ORDERED: PROPOFOL/EMULSION 500 MG/50 ML BOTTLE IV ONE (10:21)
[2017-10-23] MEDS ORDERED: ALBUTEROL 3 ML DEYVIAL IH PRN (11:06)
[2017-10-23] MEDS ORDERED: oxyCODONE IR 5 MG TAB PO PRN (11:06)
[2017-10-23] MEDS ORDERED: LR 500 ML IV PRN (11:06)
[2017-10-23] MEDS ORDERED: NALOXONE HCL 0.4 MG/ML INJ IVP PRN (11:06)
[2017-10-23] MEDS ORDERED: fentaNYL 100 MCG/2 ML INJ IVP PRN (11:06)
[2017-10-23] MEDS ORDERED: PROMETHAZINE HCL 25 MG/ML INJ IVP PRN (11:06)
--- NOTE | 2017-10-23 11:19 | POSTANESTH ---
Post Anesthetic Evaluation Cardiovascular Status: Normal, Stable Respiratory Status: Normal, Stable Level of Consciousness/Mental Status: Can Participate in Eval, Moderately Sleepy Pain Control: Adequate, Prn Tx Ordered (Pt reports mild throat discomfort and no stomach pain at this time.) Nausea/Vomiting Control: Adequate, Prn Tx Ordered Complications Possibly Related to Anesthesia: None Noted
--- NOTE | 2017-10-23 11:30 | SOAPPROG ---
SOAP Progress Note Assessment/Plan: Assessment: Plan: 10/23/17 11:28 GI note S/p EUS/EGD. No choledocholithiasis. No ulcer disease or cause of pain seen. Would consider trial of Carafate versus other if pain persists. Please see dictated procedure notes for details. Objective: Vital Signs Temp Pulse Resp BP Pulse Ox 37.0 C 105 H 15 124/65 H 94 10/23/17 10:04 10/23/17 10:06 10/23/17 11:21 10/23/17 11:21 10/23/17 11:21 Laboratory Results 10/23/17 04:03 10/20/17 03:40 10/22/17 10/23/17 10/24/17 05:59 05:59 05:59 Intake Total 680 1200 Output Total 3 Balance 680 1197 PT 18.9 SEC (12.0-15.0) H 10/17/17 03:15 INR 1.57 (0.83-1.16) H 10/17/17 03:15 ICD10 Worksheet Patient Problems: Problems Problem Status Onset Osteoarthritis of hip Chronic Afib Acute UTI (urinary tract infection) Acute Severe sepsis Acute Altered mental status Acute Fever Acute Diarrhea Acute Failure to thrive Acute Ribs, multiple fractures Acute Wrist fracture, right Acute Cholecystitis, acute Acute Sepsis Acute
--- NOTE | 2017-10-23 11:58 | GCON ---
[f rep st] CONSULTATION DATE OF CONSULTATION: 10/23/2017 REFERRING PHYSICIAN: Lorie Ware MD REASON FOR CONSULTATION: Epigastric abdominal pain/nausea/vomiting. CHIEF COMPLAINT: Epigastric abdominal pain/nausea/vomiting. HISTORY OF PRESENT ILLNESS: The patient is a 72-year-old female with multiple medical problems, including atrial fibrillation, Pinky fundoplication, obstructive sleep apnea, who presented to [facility] with complaints of epigastric abdominal pain. The patient describes the pain as sharp and sometimes dull, with some radiation into her chest area. The pain has been present for about 2 weeks, but it has gotten progressively worse. She came for evaluation and was diagnosed with cholecystitis and had a cholecystectomy performed. Unfortunately, after this procedure, she started to experience increasing abdominal pain. She thinks the pain is somewhat different than her prior abdominal pain. Her symptoms are exacerbated by eating and occur approximately 4-5 hours after eating. She denies any alleviating factors. She denies any change in her bowel habits, dysphagia or odynophagia. She had significant nausea and has had dry heaves several times. I am being asked by Dr. Ware to see the patient in consultation regarding her epigastric abdominal pain, nausea, vomiting. PAST MEDICAL HISTORY: 1. Atrial fibrillation. 2. Endometrial cancer. 3. Chronic back pain. 4. Obstructive sleep apnea. 5. Hypothyroidism. 6. Degenerative joint disease. PAST SURGICAL HISTORY: 1. Bilateral hip replacement. 2. Hysterectomy. 3. Rotator cuff surgery. 4. Pinky fundoplication. 5. Appendectomy. 6. Right wrist nonhealing fracture. ALLERGIES: NKDA. MEDICATIONS: Eliquis, oxymorphone, calcium, Flexeril, diltiazem, levothyroxine , temazepam, cyclosporine eye drops, fentanyl, ropinirole, Trintellix. SOCIAL HISTORY: No significant alcohol or tobacco use. FAMILY HISTORY: Colon cancer in first-degree relative. REVIEW OF SYSTEMS: A 14-point comprehensive review of systems was asked. Pertinent positives and negatives per HPI. PHYSICAL EXAM: VITAL SIGNS: Blood pressure 144/91, heart rate 94, respiration rate 16, temperature 37. GENERAL: Awake, alert, oriented x3, in no distress. HEENT: Anicteric sclerae. Moist mucosa. NECK: No JVD. HEART: Regular rate and rhythm. LUNGS: Clear to auscultation bilaterally. ABDOMEN: Soft, tender , especially in the midepigastrium. No guarding. No rebound. Positive bowel sounds. EXTREMITIES: No clubbing, cyanosis or edema. MUSCULOSKELETAL: No joint effusions. LYMPH: No lympadenopathy. NEUROLOGIC: 2 through 12 grossly intact. PSYCH: Normal affect. SKIN: No rash. LABORATORY DATA: WBC 12.53, platelets 358. INR 1.57, on 10/17/2017. AST 16, ALT 30, alkaline phosphatase 76, lipase 40. ASSESSMENT AND PLAN: 1. Abdominal pain.- Midepigastrium with nausea and vomiting. Status post cholecystectomy with multiple small stones seen. Liver function tests normal. Etiology? I am unsure what the cause of her symptoms are since her pain pattern is atypical for PUD, biliary colic etc. Since she had a recent cholecystectomy with multiple stones, would recommend to proceed with EGD and EUS to evaluate the common bile duct, rule out peptic ulcer disease etc. The risks, benefits, and alternatives of the procedure were discussed in great detail with the patient. The risk of infection, bleeding, perforation, and sedation were discussed. Due to her obstructive sleep apnea and atrial fibrillation, she is at increased risk of sedation and will consult Anesthesiology for support. 2. Hypothyroidism. 3. Obstructive sleep apnea. 4. Atrial fibrillation. 5. Chronic pain. Thank you very much for this consultation. /[id number]/MODL MTDD
--- NOTE | 2017-10-23 12:03 | GPN ---
[f rep st] PROCEDURE NOTE DATE OF PROCEDURE: 10/23/2017 PROCEDURE: Esophagogastroduodenoscopy with biopsy, endoscopic ultrasound. INDICATION: The patient is a 72-year-old female who presents for evaluation of epigastric abdominal pain, nausea, and vomiting. She just had a cholecystectomy. CONSENT: Risks, benefits, and alternatives of the procedure discussed in great detail with the patient. Risk of infection, bleeding, perforation, and sedation were discussed. All questions answered. Informed consent obtained. MEDICATIONS: Propofol. Please see anesthesia record for details. ESTIMATED BLOOD LOSS: Insignificant. ESOPHAGOGASTRODUODENOSCOPY EXAMINATION: The Olympus upper endoscope was inserted in the mouth and advanced to the esophagus. The proximal, mid, and distal esophagus were normal in appearance. The stomach was entered and closely examined including retroflexed views of angularis, cardia, and fundus. Multiple small sessile gastric polyps noted in the greater curvature, and biopsies were taken. The mucosa in the antrum and body was erythematous and biopsies were taken. The duodenal bulb and second portion of duodenum were normal in appearance. ENDOSCOPIC ULTRASOUND EXAMINATION: The Olympus linear echoendoscope was inserted in the mouth and advanced to the second portion of the duodenum. The esophagus, stomach, and duodenum were visualized endosonographically. The common bile duct was seen and was dilated in the distal aspect. No obvious stone lesion or obstructing lesion was seen. The pancreatic duct was seen merging with the distal common duct. It was normal in appearance. The suspected to be a cystic duct remnant was seen and noted to be very tortuous. A possible small 1 mm stone was seen.withno acoustic shadowing versus e a suture was seen. The pancreas parenchyma had hyperechoic foci. The pancreatic duct was not dilated. The pancreatic duct wall was hyperechoic. No lobulations were noted. The liver was examined, and no mass lesion was noted. No suspicious periportal, peripancreatic, or perigastric lymph nodes were appreciated. IMPRESSION: 1. No obvious cause of pain. 2. Gastritis- s/p biopsy 3. Gastric polyps- s/p biopsy. 4. No choledocholithiasis. RECOMMENDATION: 1. Follow up on biopsy results. 2. Consider a trial of Carafate versus other if pain persists. /[id number]/MODL MTDD
--- NOTE | 2017-10-23 14:05 | CPEKG ---
Heart Rate: 82 RR Interval: 732 QRSD Interval: 80 QT Interval: 348 QTC Interval: 407 QRS [place]: 47 T Wave [place]: 124 EKG Severity - ABNORMAL ECG - EKG Impression: ATRIAL FIBRILLATION, V-RATE 65-96 EKG Impression: NONSPECIFIC T ABNORMALITIES, LATERAL LEADS Electronically Signed By: Sidney Sy 24-Oct-2017 15:28:24
[2017-10-23] MEDS: Vortioxetine Hydrobromide [Trintellix] 20 MG PO SCH (14:44)
--- NOTE | 2017-10-23 17:08 | HOSPPROG ---
Hospitalist Progress Note Assessment/Plan: * Acute cholecystitis s/p lap asia -Augmentin 875mg BID * Persistent N/V/epigastric pain/CP -symptoms no better after asia -treat constipation -EGD unremarkable -? 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 Objective: Vital Signs Temp Pulse Resp BP Pulse Ox 36.2 C 82 18 103/79 95 10/23/17 12:05 10/23/17 12:00 10/23/17 12:00 10/23/17 12:01 10/23/17 12:01 Laboratory Results 10/23/17 04:03 10/20/17 03:40 10/22/17 10/23/17 10/24/17 05:59 05:59 05:59 Intake Total 680 1200 850 Output Total 3 0 Balance 680 1197 850 PT 18.9 SEC (12.0-15.0) H 10/17/17 03:15 INR 1.57 (0.83-1.16) H 10/17/17 03:15 d/w DR. Tipton - EGD today EKG viewed, my personal interpretation is - no ischemic ST changes - Physical Exam Constitutional: no apparent distress, appears nourished, not in pain Cardiovascular: regular rate and rhythym, no murmur, rub, or gallop Respiratory: no respiratory distress, no rales or rhonchi, clear to auscultation Gastrointestinal: normoactive bowel sounds, soft, non-tender abdomen, no palpable masses Skin: no rashes or abrasions, no fluctuance, no induration Neurologic: AAOx3, sensation intact bilaterally Psychiatric: interacting appropriately, not anxious, not encephalopathic, thought process linear ICD10 Worksheet Patient Problems: Problems Problem Status Onset Cholecystitis, acute Acute Sepsis Acute Afib Acute Altered mental status Acute Diarrhea Acute Failure to thrive Acute Fever Acute Ribs, multiple fractures Acute Severe sepsis Acute UTI (urinary tract infection) Acute Wrist fracture, right Acute Osteoarthritis of hip Chronic
[2017-10-23] MEDS: CYCLOBENZAPRINE 10 MG TAB PO SCH (20:44)
[2017-10-23] MEDS: SENNOSIDES/DOCUSATE SODIUM TAB PO SCH (20:45)
[2017-10-23] MEDS: HYDROCODONE/APAP 5/325 TAB PO SCH (20:45)
[2017-10-24 04:19] LABS: PLATELET COUNT 357 10^3/uL (150-400)
[2017-10-24] MEDS: LEVOTHYROXINE 125 MCG TAB PO SCH (05:50)
[2017-10-24] MEDS: oxyCODONE IR 5 MG TAB PO PRN ×2 (05:53→11:39)
[2017-10-24] MEDS ORDERED: fentaNYL 75 MCG PATCH TD SCH (09:00)
[2017-10-24] MEDS ORDERED: REGADENOSON 0.4 MG/5 ML SYR IVP ONE (09:11)
[2017-10-24] MEDS: DILTIAZEM XR 240 MG CAP PO SCH (11:33)
[2017-10-24] MEDS: AMOXICILLIN/CLAVULANATE POT 875/125 MG TAB PO SCH (11:33)
[2017-10-24] MEDS: PANTOPRAZOLE SODIUM 40 MG TAB PO SCH (11:33)
[2017-10-24] MEDS: APIXABAN 5 MG TAB PO SCH (11:34)
[2017-10-24] MEDS: SENNOSIDES/DOCUSATE SODIUM TAB PO SCH (11:34)
--- NOTE | 2017-10-24 11:58 | ASMTCMCOM ---
CM Note CM Note Notes: 10/24/2017 Case Management Note Faxed updates to [facility]. Case Management d/c poc: [facility] with Home [facility] 24/12 unskilled caregiver support. Case Management to follow Date Signed: 10/24/2017 11:58 AM Electronically Signed By:Beckie Mcnulty RN
--- NOTE | 2017-10-24 13:38 | PDIAF ---
- Diagnosis Code Status: Full Code - Medication Management Discharge Medications: Medications to Continue on Transfer Apixaban [Eliquis] 5 mg PO BID #60 tab 01/07/15 [Last Taken 10/16/17] Oxymorphone HCl 5 mg PO BID PRN 07/18/17 [Last Taken 08/14/17 03:00] Calcium Carbonate [Oyster Shell Calcium 500 mg (*)] 500 mg PO DAILY 08/14/17 [ Last Taken Unknown] Cholecalciferol Vit D3 [Vitamin D3 (*)] 1,000 units PO DAILY 08/14/17 [Last Taken Unknown] Cyclobenzaprine [Flexeril 10 MG (*)] 20 mg PO HS 08/14/17 [Last Taken 08/13/17] Diltiazem HCl [Cartia XT 240mg] 240 mg PO DAILY 08/14/17 [Last Taken 10/16/17] Levothyroxine [Synthroid 125 mcg (*)] 125 mcg PO DAILY06 08/14/17 [Last Taken ] Temazepam [Restoril 15 MG (*)] 15 mg PO HSPRN PRN 08/14/17 [Last Taken 08/13/17] Vortioxetine Hydrobromide [Trintellix] 20 mg PO DAILY@1200 08/14/17 [Last Taken 10/16/17] cycloSPORINE 0.05% [Restasis Opht Drops(*)] 1 drop EACHEYE BID 08/14/17 [Last Taken 10/16/17] fentaNYL [Duragesic 75 MCG Patch (*)] 75 mcg TD Q48H 08/14/17 [Last Taken ] rOPINIRole HCL [Requip 2mg (*)] 2 mg PO HS 08/14/17 [Last Taken 08/13/17] Hydrocodone/APAP 5/325 [[place] 5/325 (*)] 2 tab PO HS 10/16/17 [Last Taken Unknown] Amoxicillin/Clavulanate Pot [Augmentin 875 MG TAB (*)] 875 mg PO BID #6 tab [Last Taken Unknown] Polyethylene Glycol 3350 [Miralax 17 gm (*)] 17 gm PO DAILY PRN pkt 10/24/17 [ Last Taken Unknown] Sennosides/Docusate Sodium [Senokot-S] 1 - 2 tab PO BID tab 10/24/17 [Last Taken Unknown] Discharge Medications: Refer to the Discharge Home Medication list for PRN reason. - Orders Services needed: Home Care, Registered Nurse, Certified Tree Tapping Laborer, Physical Therapy, Occupational Therapy Home Care Face to Face: I certify that this patient was under my care and that I had the required [id number] encounter meeting the encounter requirements on the discharge day. My findings support the fact that the patient is homebound as defined in Home Care Face to Face Continued: CMS Chapter 7 Medicare Benefits Manual 30.1.1 , The condition of the patient is such that there exists a normal inability to leave home and consequently, leaving home would require a considerable and taxing effort. Isolation Type: None Diet Recommendation: no restrictions on diet Additional Instructions: follow up with Dr. Ramires in 1week - Follow Up Care Current Providers and Referrals: Tulio Ramires MD [Medical Doctor] - Caitlin Vicente MD [Primary Care Provider] - As per Instructions
[2017-10-24] MEDS: Vortioxetine Hydrobromide [Trintellix] 20 MG PO SCH (14:05)
[2017-10-24] MEDS: cycloSPORINE 0.05% 30 DROPERETTE/BOX EACHEYE SCH (14:06)
--- NOTE | 2017-10-24 14:14 | ASMTLACE ---
LACE Length of stay for Answers: 7-13 days current admission Acuity / Level of Answers: Yes Care: Did the patient have an inpatient admission? Comorbidities - select Answers: Any tumor (including all that apply lymphoma or leukemia) Other Notes: Atrial fibrillation # of Emergency department Answers: 1-2 visits in the last 6 months Score: 12 Date Signed: 10/24/2017 02:13 PM Electronically Signed By:Beckie Mcnulty RN
--- NOTE | 2017-10-24 14:20 | ASDISCHSUM ---
Discharge Information Plan Status:Home with Home Health Medically Cleared to Leave:10/24/2017 Discharge Date:10/24/2017 D/C Disposition:Home Health Service ADT D/C Disposition:Home, Routine, Self-Care Projected Discharge Date:10/22/2017 11:00 AM Transportation at D/C: Discharge Delay Reason: Follow-Up Date:10/22/2017 11:00 AM Discharge Slot: Final Diagnosis: Placement Information Referral Type:*Home Health Care Services Referral ID:[id number] Provider Name:[facility] Address 1:[address] [address] Address 2: City:[place] Selection Factors: State:[place] Patient Contact Information Contact Name:AIDEN Relationship:Sister Address:[address] City:[place] Alternate Phone: State/Zip Code:[place] [address] Email: Financial Information Financial Class:Medicare Primary Plan Desc:MEDICARE INPATIENT Primary Plan Number:[id number] Secondary Plan Desc:ELSIE INDEMNITY Secondary Plan Number:[id number] Assessment Information LACE LACE Length of stay for Answers: 7-13 days current admission Acuity / Level of Answers: Yes Care: Did the patient have an inpatient admission? Comorbidities - select Answers: Any tumor (including all that apply lymphoma or leukemia) Other Notes: Atrial fibrillation # of Emergency department Answers: 1-2 visits in the last 6 months Score: 12 Date Signed: 10/24/2017 02:13 PM Electronically Signed By:Beckie Mcnulty RN [facility] CM Progress Note CM Note CM Note Notes: Patient admitted with abd pain, found to have acute cholecystitis with sepsis. She is being treated with IV antibiotics and weaned off Eliquis in anticipation for surgery Thursday 10/19. Patient lives alone and is normally independent. PT/OT have been ordered. CAse Management will follow for discharge planning. Date Signed: 10/17/2017 10:47 AM Electronically Signed By:Gemma Eli RN [facility] CM Progress Note CM Note CM Note Notes: [facility] CM will send orders upon discharge. Date Signed: 10/17/2017 01:17 PM Electronically Signed By:Gemma Eli RN [facility] CM Progress Note CM Note CM Note Notes: Patient is going for gallbladder surgery in the morning at 9:00 AM. She is current with [facility]. PT is recommending SNF rehab. Spoke with patient's nurse who states patient will most likely want to do home health care but we can meet with the patient after surgery to check in about SNF recommendation. CM will follow. Date Signed: 10/18/2017 03:42 PM Electronically Signed By:Kristy Coles LCSW [facility] CM Progress Note CM Note CM Note Notes: Spoke with MD; anticipate dc tomorrow. Met with pt to discuss SNF vs HHC. Pt does not want to go to SNF; prefers to go home with [facility] & private [facility]. Updates faxed to [facility]. Jas onsite to visit pt. Pt to contact [facility]. Pt states she will have a ride tomorrow. CM will follow. Date Signed: 10/21/2017 05:15 PM Electronically Signed By:Kelley Barrientos RN [facility] CM Progress Note CM Note CM Note Notes: 10/24/2017 Case Management Note Faxed updates to [facility]. Case Management d/c poc: [facility] with [facility] 24/12 unskilled caregiver support. Case Management to follow Date Signed: 10/24/2017 11:58 AM Electronically Signed By:Beckie Mcnulty RN Case Management Discharge Plan Note Case Management Discharge Discharge Order Complete? Answers: Yes Patient to Obtain Answers: Independently Medications Agency/Facility Transfer Answers: Yes Report Printed & Faxed to Receiving Agency Discharge Comments Notes: 10/24/2017 Case Management Note Faxed final orders to [facility] for start of service tomorrow. Pt uses [facility] for 24/12 unskilled career guidance counselor support. Date Signed: 10/24/2017 02:17 PM Electronically Signed By:Bcekie Mcnulty RN Intervention Information Intervention Type:*IM-Signed Date of Service:10/24/2017 01:51 PM Patient Type:Inpatient Staff Member:Ifeoma Fernandez Hours: Discipline: Severity: Comment:
[2017-10-24 15:16] VITALS: BP 120/70
--- NOTE | 2017-10-24 15:59 | PDCARST ---
CAR Stress Test Results Type of Stress Test: Lexiscan stress test Indication: cp Description of Procedure: After informed consent was obtained, pt was established to ECG, blood pressure, HR and oximetry monitoring. STRESS EKG AND HEMODYNAMIC DATA. Resting heart rate: 120 BPM. Resting ECG: AF. Resting blood pressure: 132/80 mmHg. O2 saturation at rest: 90%. Peak heart rate: 130 BPM. Peak blood pressure: 130/80 mmHg. Arrhythmias: AF. Symptoms: The patient experienced no typical symptoms of angina during stress or recovery. Stress/Infusion ECG: No change in rhythm with no significant ST/T wave changes. Stress/infusion O2 saturation: 90% Impression: Uneventful Lexiscan infusion. Conclusion: Await nuclear images.
== END 2017-10-24 16:00 | disposition home or self-care (01) | DRG 854 ==
LOC: EDUNIT# → EDBD → OBSVTOIN 15:24 → F2N 17:39 → F2W 10-19 09:54
PROVIDERS: ADMIT Internal Medicine; ATTEND Internal Medicine
DX: A41.9 Sepsis, unspecified organism (principal); K80.00 Calculus of gallbladder with acute cholecystitis without obstruction; K29.70 Gastritis, unspecified, without bleeding; K31.7 Polyp of stomach and duodenum; F11.20 Opioid dependence, uncomplicated; I48.2 Chronic atrial fibrillation; G47.33 Obstructive sleep apnea (adult) (pediatric); S52.91XD Unspecified fracture of right forearm, subsequent encounter for closed fracture with routine healing; M54.9 Dorsalgia, unspecified; E03.9 Hypothyroidism, unspecified; K21.9 Gastro-esophageal reflux disease without esophagitis; E66.9 Obesity, unspecified; Z96.643 Presence of artificial hip joint, bilateral; Z68.32 Body mass index [BMI] 32.0-32.9, adult; Z85.42 Personal history of malignant neoplasm of other parts of uterus; Z92.3 Personal history of irradiation; Z79.01 Long term (current) use of anticoagulants
CPT/HCPCS: 96365; 97116-GP; 97162-GP; 97165-GO; 97168-GO; 97530-GP; 97535-GO; A9500; G8978-GP-CK; G8979-GP-CI; G8979-GP-CJ; G8980-GP-CI; G8987-GO-CJ; G8987-GO-CK; G8988-GO-CI; G8988-GO-CJ; J0171; J0330; J1100; J1170; J1885; J1956; J2370; J2405; J2550; J2704; J2785; J3010; Q9967

== ENCOUNTER → 2018-05-20 | Outpatient (CLI) | payer OTHER | LOC: FIMAGING 08:56 | PROVIDERS: ATTEND Internal Medicine | DX: R10.9 Unspecified abdominal pain (principal); K76.0 Fatty (change of) liver, not elsewhere classified; Z90.49 Acquired absence of other specified parts of digestive tract; Z98.890 Other specified postprocedural states ==

== ENCOUNTER 2018-07-22 12:18 | Day surgery (SDC) | payer OTHER ==
[2018-07-22] MEDS ORDERED: BUPIVACAINE 0.5% 30 ML SDV ONE (12:38)
[2018-07-22] MEDS ORDERED: methylPREDNISolone SOD SUCC 125 MG/2 ML VIAL ONE (12:38)
[2018-07-22] MEDS ORDERED: methylPREDNISolone SOD SUCC 1 GM/8 ML VIAL ONE (12:39)
[2018-07-22] MEDS ORDERED: DEPO METHYLPREDNISOLONE 40 MG/ML SDV ONE (12:39)
[2018-07-22] MEDS ORDERED: LR 1,000 ML IV ONE (12:47)
--- NOTE | 2018-07-22 12:54 | PDANEPAE ---
ANE History of Present Illness Dorsal plate and hardware removal left hand/wrist and hand debridement ANE Past Medical History - Cardiovascular History Hx Hypertension: Yes Hx Arrhythmias: Yes Hx Chest Pain: No Hx Coronary Artery / Peripheral Vascular Disease: No Hx CHF / Valvular Disease: No Hx Palpitations: No Cardiovascular History Comment: chronic A-Fib on Eliquis. hx of cv with parker. hyperlipidemia. followed by [facility] - Pulmonary History Hx COPD: No Hx Asthma/Reactive Airway Disease: No Hx Recent Upper Respiratory Infection: No Hx Oxygen in Use at Home: Yes O2 in Use at Home (L/minute): 3.L Hx Sleep Apnea: Yes Sleep Apnea Screening Result - Last Documented: Positive Pulmonary History Comment: uses o2 at noc with cpap- pt will bring travel tank - Neurologic History Hx Cerebrovascular Accident: No Hx Seizures: No Hx Dementia: No Neurologic History Comment: CLOSED HEAD INJURY 09/2016. DDD. RESTLESS LEG SYNDROME - Endocrine History Hx Diabetes: No Endocrine History Comment: mitchell's - Renal History Hx Renal Disorders: Yes Renal History Comment: stress incontinence- occ wears pad if needed - Liver History Hx Hepatic Disorders: No - Neurological & Psychiatric Hx Hx Neurological and Psychiatric Disorders: Yes Neurological / Psychiatric History Comment: severe insomnia. 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 PREV COLONOSCOPY WTIH POLYPS REMVL - Other Health History Other Health History: reading glasses. DRY EYES - Chronic Pain History Chronic Pain: Yes (back pain) - Surgical History Prior Surgeries: 02/2018 [facility] 02/18 lab asia with leibovitz. 07/19/17 colonoscopy with bersentes. 04/15/15 cv for afib with parker. 05/11/13 left SAM with Osvaldo. 11/17/12 right SAM with Osvaldo. 08/22/12 lap hysterectomy with Stone. RT RTC REPAIR. KIERA FUNDOPLICATION. TONSILLECTOMY ANE Review of Systems Review of Systems: - Exercise capacity METS (RN): 3 METS ANE Patient History - Allergies Allergies/Adverse Reactions: codeine [Codeine] Allergy (Verified 06/26/18 15:24) Vomiting - Home Medications Home Medications: Oxymorphone HCl BID PRN 07/18/17 [Last Taken 08/14/17 03:00] Calcium Carbonate [Oyster Shell Calcium 500 mg (*)] 08/14/17 [Last Taken Unknown] Cholecalciferol Vit D3 [Vitamin D3 (*)] 08/14/17 [Last Taken Unknown] Cyclobenzaprine [Flexeril 10 MG (*)] HS 08/14/17 [Last Taken 08/13/17] Diltiazem HCl [Cartia XT 240mg] 08/14/17 [Last Taken 10/16/17] Levothyroxine [Synthroid 125 mcg (*)] 08/14/17 [Last Taken 10/16/17] Vortioxetine Hydrobromide [Trintellix] 08/14/17 [Last Taken 10/16/17] cycloSPORINE 0.05% [Restasis Opht Drops(*)] BID 08/14/17 [Last Taken 10/16/17] fentaNYL [Duragesic 75 MCG Patch (*)] 08/14/17 [Last Taken 10/15/17] Hydrocodone/APAP 5/325 [Medina 5/325 (*)] HS 10/16/17 [Last Taken Unknown] Apixaban [Eliquis] BID 06/26/18 [Last Taken Unknown] Belsomra 06/26/18 [Last Taken Unknown] Myrbetriq 06/26/18 [Last Taken Unknown] Polyethylene Glycol 3350 [Miralax 17 gm (*)] PRN 06/26/18 [Last Taken Unknown] Temazepam 07/18/18 [Last Taken Unknown] - Smoking Hx Smoking Status: Never smoked - Family Anes Hx Family Hx Anesthesia Complications: none ANE Labs/Vital Signs - Vital Signs Height: 173.99 cm Weight: 99.79 kg ANE Physical Exam - Airway Neck exam: decreased ROM, increased neck circumference, short neck Mallampati Score: Class 3 Mouth exam: normal dental/mouth exam - Pulmonary Pulmonary: no respiratory distress, other (on O2 today and wears it at night) - Cardiovascular Cardiovascular: no murmur, rub, or gallop, irregularly irregular - ASA Status ASA Status: III ANE Anesthesia Plan Anesthesia Plan: GA w LMA Total IV Anesthesia: No
[2018-07-22] MEDS ORDERED: MIDAZOLAM 2 MG/2 ML VIAL IVP ONE (13:03)
[2018-07-22] MEDS ORDERED: ceFAZolin 2 GM/DEXTROSE 100 ML IV ONE (13:20)
--- NOTE | 2018-07-22 13:20 | PDHPUP ---
History & Physical Update H&P update statement: This history and physical update is based on an assessment of the patient which was completed after admission or registration (within 24 hours), but prior to the surgery/procedure. H&P update: no change in patient's condition since H&P completed (No change in adama since last visit. Resp and cardiovasc exam normal.)
[2018-07-22] MEDS ORDERED: CEFAZOLIN 2 GM/DEXTROSE/100 ML BAG IV ONE (13:25)
[2018-07-22] MEDS ORDERED: fentaNYL 100 MCG/2 ML INJ ONE ×2 (13:40→14:19)
[2018-07-22] MEDS ORDERED: PROPOFOL 200 MG/20 ML VIAL ONE (13:40)
[2018-07-22] MEDS ORDERED: PHENYLEPHRINE 10 MG/ML SDV ONE (14:18)
[2018-07-22] MEDS ORDERED: ONDANSETRON 4 MG/2 ML VIAL ONE (14:18)
[2018-07-22] MEDS ORDERED: DEXAMETHASONE 4 MG/ML VIAL ONE (14:18)
[2018-07-22] MEDS ORDERED: PHENYLEPHRINE HCL 100 MCG/ML SYR ONE (14:18)
[2018-07-22] MEDS ORDERED: LR 250 ML IV PRN (14:26)
[2018-07-22] MEDS ORDERED: HYDROCODONE/APAP 5/325 TAB PO PRN (14:26)
[2018-07-22] MEDS ORDERED: PROMETHAZINE HCL 25 MG/ML INJ IVP PRN (14:26)
[2018-07-22] MEDS ORDERED: NALOXONE HCL 0.4 MG/ML INJ IVP PRN ×2 (14:26)
[2018-07-22] MEDS ORDERED: ALBUTEROL 3 ML DEYVIAL IH PRN (14:26)
[2018-07-22] MEDS ORDERED: fentaNYL 100 MCG/2 ML INJ IVP PRN (14:26)
[2018-07-22] MEDS ORDERED: KETOROLAC 30 MG/1 ML SDV ONE (14:27)
--- NOTE | 2018-07-22 14:40 | POSTOPPROG ---
Post Op Note Date of Operation: 07/22/18 Surgeon: Mathew Curtis Lens Coater: None Anesthesiologist: Omaira Valadez Anesthesia: LMA Pre-op Diagnosis: Retained right wrist plate and capsular adhesions and left olecranon bursit Post-op Diagnosis: same Indication: tendon wrist and elbow irritation Procedure: Excision plate and screws, capsulectomy and olecranon bursa injection Findings: as above Inf/Abcess present in the surg proc area at time of surgery?: No Depth: Deep Incisional (Fascial) EBL: Minimal Total fluids administered: 600cc Complications: none Specimen(s): Plate and screws to patient
--- NOTE | 2018-07-22 14:51 | POSTANESTH ---
Post Anesthetic Evaluation Cardiovascular Status: Normal, Stable, Tx Over/Under Hydration (Giving judicious IVF bolus for borderline hypotension/sl tachycardia) Respiratory Status: Normal, Stable Level of Consciousness/Mental Status: Can Participate in Eval, Mildly Sleepy, Arousable Pain Control: Adequate, Prn Tx Ordered Nausea/Vomiting Control: Adequate, Prn Tx Ordered Complications Possibly Related to Anesthesia: None Noted
--- NOTE | 2018-07-22 15:19 | GOP ---
[f rep st] PREOP HISTORY AND PHYSICAL DATE OF ADMISSION: 07/22/2018 PREOPERATIVE DIAGNOSIS: Retained right dorsal distal radial plate and screws and capsular adhesions with limited wrist range of motion and left olecranon bursitis. POSTOPERATIVE DIAGNOSIS: Retained right dorsal distal radial plate and screws and capsular adhesions with limited wrist range of motion and left olecranon bursitis. PROPOSED OPERATION: Olecranon bursal cortisone injection, right distal radial excision of plate and screws, and capsulectomy of dorsal radial and ulnar joint capsule. INDICATION: This patient had some limitation of extension and was found to have a large loose fragme nt on the dorsal aspect of the wrist, had limitation of flexion secondary to scarring from previous i njury and surgery, retained plate and screws which were causing irritation of the extensor tendons, a nd longstanding left olecranon bursitis. It is felt at this point that surgical treatment was a good option for her. DESCRIPTION: Under general anesthesia, the skin at the olecranon area was carefully prepped with alc ohol swabs and then 40 mg of Depo-Medrol and 0.5 cc of 0.5% plain Marcaine was injected into the olec ranon bursa. The injection went smoothly with good infiltration of the bursa, a Band-Aid was applied , and then attention was turned to the right arm and the right arm was prepped and draped in the usua l fashion. Arm tourniquet applied at 250 mmHg. The original surgical scar which was L-shaped dorsal ly was reopened. The skin flap was elevated radially and the interval between the 2nd and 4th dorsal compartments was opened. There had been previous transposition of the extensor pollicis longus tend on. The plate and screws were visualized and from surrounding soft tissues. Screw holes w ere cleaned out and then all 8 screws were removed. The plate was elevated from the distal radius an d a bone rongeur was used to remove bone and soft tissue, which had grown through the screw holes of plate. Then, using a 15 blade, a large loose fragment at the dorsal aspect of the wrist was excised and it was felt that probably had been impinging with wrist extension and wrist extension was immedia tely improved post fragment excision. Flexion was limited and dorsal, radial, and ulnar capsulectomy did result in significant improvement in flexion. The wrist was irrigated profusely with body tempe rature saline, 0.5% plain Marcaine was instilled at the operative area, as well as adjacent soft tiss ues. A total of 20 cc of 0.25% Marcaine was injected, then the periosteum and extensor retinaculum w ere closed with [id number] sutures of 4-0 PDS. The skin was closed with horizontal mattress sut ures of 5-0 Prolene and then a bulky soft pressure dressing was applied. It was felt that splint imm obilization was not beneficial after doing capsulectomy and contracture release, and so the bulky sof t pressure dressing was held in place with an Biju bandage and no splint was applied. Tourniquet defl ation resulted in immediate pinking of the digits. She was brought to the recovery area where detail ed postoperative instructions were given prior to discharge. A prescription for Dilaudid and Keflex was provided. Followup arrangements in the office for about 1 week postop. She had been given 2 g o f Ancef intravenously prior to commencement of surgery. At 1 week, when sutures are removed, she can start on aggressive active range of motion program, protective splint to be worn only as need be. /[id number]/MODL
[2018-07-22 18:37] VITALS: BP 122/59
== END 2018-07-22 18:14 | disposition home or self-care (01) ==
LOC: FSGY 12:18
PROVIDERS: ATTEND Specialist
PROC: 3E0U33Z Introduction of Anti-inflammatory into Joints, Percutaneous Approach (ICD-10-PCS; principal; 2018-07-22 13:30)
PROC: 3E0U3BZ Introduction of Anesthetic Agent into Joints, Percutaneous Approach (ICD-10-PCS; principal; 2018-07-22 13:30)
PROC: 0PPH04Z Removal of Internal Fixation Device from Right Radius, Open Approach (ICD-10-PCS; principal; 2018-07-22 13:30)
DX: T84.84XA Pain due to internal orthopedic prosthetic devices, implants and grafts, initial encounter (principal); T84.89XA Other specified complication of internal orthopedic prosthetic devices, implants and grafts, initial encounter; M24.631 Ankylosis, right wrist; M70.22 Olecranon bursitis, left elbow; I48.2 Chronic atrial fibrillation; Z79.01 Long term (current) use of anticoagulants; E78.5 Hyperlipidemia, unspecified; Z87.820 Personal history of traumatic brain injury; G25.81 Restless legs syndrome; E06.3 Autoimmune thyroiditis; G47.33 Obstructive sleep apnea (adult) (pediatric)
CPT/HCPCS: J0690; J1030; J1100; J1885; J2250; J2370; J2405; J2704; J2930; J3010